=== PATIENT | male | born 1945 ===

== ENCOUNTER 2019-12-02 09:03 | Inpatient (IN) ==
[2019-12-02 11:00] LABS: Allen Test Positive; Pt O2 Delivery Device Ventilator
[2019-12-02 11:01] LABS: ABG Base Excess -4.4 MMOL/L (-2.5-2.5); ABG HCO3 20.8 MMOL/L (20-26); ABG PCO2 62.9 MM HG (35-48); ABG PH 7.218 (7.35-7.45); ABG TCO2 22.2 MMOL/L (23-27)
[2019-12-02 11:15] LABS: Basophils # 0.1 10*3/uL (0.0-0.2); Basophils % 0.5 % (0.0-0.8); Eosinophils # 0.2 10*3/uL (0.0-0.87); Hematocrit 48.7 VOL% (42.0-52.0); Hemoglobin 16.2 GM/DL (14.0-18.0); Immature Granulocytes % 4.2 %; Immature Granulocytes Absolute 0.71 #; Lymphocytes # 0.6 10*3/uL (1.4-4.0); Lymphocytes % 3.3 % (21.2-54.2); Mean Corpuscular HGB Conc 33.3 GM/DL (32-36); Mean Corpuscular Volume 92.8 FL (87-102); Platelet Count 254 T/CUMM (130-400); Red Blood Count 5.25 MC/CUMM (3.8-5.5); Red Cell Distribution Width 14.1 % (9.3-17.3)
[2019-12-02 11:44] LABS: Ferritin 782.1 ng/ml (26-388)
[2019-12-02 11:47] LABS: Lymphocytes 5 % (20-55); Microcytosis Slight; Myelocytes 2 %; Platelet Estimate Normal; Segmented Neutrophils 91 % (50-85); Total Cells Counted 100
[2019-12-02 12:30] LABS: HIV Antigen/Antibody Result Nonreactive (Nonreactive); Hepatitis B Surface Ag Quant < 0.10 Index; Hepatitis B Surface Ag Result Negative (Negative); Hepatitis C Virus Ab Result Negative (Negative)
[2019-12-02] MEDS ORDERED: SODIUM CHLORIDE 0.9% 500 ML IV ONE (13:26)
[2019-12-02] MEDS: fentaNYL INJ 1,250 MCG in SODIUM CHLORIDE 0.9% 225 ML IV PRN (14:33)
[2019-12-02] MEDS: PANTOPRAZOLE 40 MG VIAL IV SCH (14:37)
[2019-12-02] MEDS: SODIUM CHLORIDE 0.9% 1,000 ML IV SCH (15:35)
[2019-12-02] MEDS ORDERED: SODIUM CHLORIDE 0.9% 1,000 ML IV ONE ×2 (15:44→15:55)
[2019-12-02 15:48] LABS: Bilirubin,Total 0.9 MG/DL (0.2-1.0); Calcium 7.6 MG/DL (8.5-10.1); Total Protein 5.8 G/DL (6.4-8.3)
[2019-12-02] MEDS ORDERED: MIDAZOLAM 10 MG/2 ML VIAL IV ONE (15:59)
[2019-12-02] MEDS ORDERED: MIDAZOLAM 10 MG/2 ML VIAL ONE (16:06)
[2019-12-02] MEDS: MIDAZOLAM 100 MG in SODIUM CHLORIDE 0.9% 80 ML IV PRN (17:00)
[2019-12-02] MEDS: NOREPINEPHRINE 16 MG in SODIUM CHLORIDE 0.9% 234 ML IV PRN (17:32)
[2019-12-02] MEDS: ENOXAPARIN 100 MG/ML SYRINGE SUBCUT SCH (17:43)
[2019-12-02 17:57] LABS: Troponin I < 0.015 NG/ML (0.00-0.045)
[2019-12-02] MEDS ORDERED: LEVOFLOXACIN INJ 750 MG in PREMIX 1 EACH IV SCH (18:00)
[2019-12-02] MEDS: MEROPENEM 500 MG in SODIUM CHLORIDE 0.9% 100 ML IV SCH (18:08)
[2019-12-02 18:34] LABS: ABG HCO3 20.3 MMOL/L (20-26); ABG Oxygen Saturation 98.4 % (95-100); ABG PCO2 45.8 MM HG (35-48); ABG PH 7.287 (7.35-7.45); ABG TCO2 19.2 MMOL/L (23-27)
[2019-12-03] MEDS: fentaNYL INJ 1,250 MCG in SODIUM CHLORIDE 0.9% 225 ML IV PRN ×3 (00:34→20:38)
[2019-12-03] MEDS: MEROPENEM 500 MG in SODIUM CHLORIDE 0.9% 100 ML IV SCH ×4 (01:25→19:10)
[2019-12-03] MEDS: SODIUM CHLORIDE 0.9% 1,000 ML IV SCH ×4 (01:35→20:39)
[2019-12-03 04:05] LABS: ABG Base Excess -5.9 MMOL/L (-2.5-2.5); ABG Oxygen Saturation 97.8 % (95-100); ABG PH 7.307 (7.35-7.45); ABG PO2 111.4 MM HG (80-95); ABG TCO2 21.3 MMOL/L (23-27)
[2019-12-03 04:57] LABS: Basophils # 0.1 10*3/uL (0.0-0.2); Basophils % 0.5 % (0.0-0.8); Eosinophils # 0.2 10*3/uL (0.0-0.87); Eosinophils % 1.6 % (0.00-10.9); Hematocrit 39.5 VOL% (42.0-52.0); Hemoglobin 12.7 GM/DL (14.0-18.0); Immature Granulocytes % 5.4 %; Immature Granulocytes Absolute 0.72 #; Lymphocytes # 0.4 10*3/uL (1.4-4.0); Lymphocytes % 2.6 % (21.2-54.2); Mean Corpuscular HGB Conc 32.2 GM/DL (32-36); Mean Corpuscular Volume 95.4 FL (87-102); Mean Platelet Volume 9.2 FL (9.6-12.0); Monocytes % 1.3 % (1.7-12.7); Neutrophils % 88.6 % (38.7-73.9); Platelet Count 264 T/CUMM (130-400); Red Blood Count 4.14 MC/CUMM (3.8-5.5); Red Cell Distribution Width 14.3 % (9.3-17.3); White Blood Count 13.4 T/CUMM (4-12)
[2019-12-03 05:19] LABS: Calcium 6.2 MG/DL (8.5-10.1); Osmolality,Calculated 282.8 MOS/KG (273-304)
[2019-12-03 06:17] LABS: Band Neutrophils 9 % (0-10); Burr Cells 1+; Eosinophils 2 % (0-10); Lymphocytes 2 % (20-55); Platelet Estimate Normal; Segmented Neutrophils 87 % (50-85); Total Cells Counted 100
[2019-12-03 06:18] LABS: Anisocytosis 1+; Smudge Cells Few
[2019-12-03] MEDS: PANTOPRAZOLE 40 MG VIAL IV SCH (08:23)
[2019-12-03] MEDS: ENOXAPARIN 100 MG/ML SYRINGE SUBCUT SCH ×2 (08:23→20:30)
[2019-12-03] MEDS ORDERED: CALCIUM GLUCONATE 2,000 MG in SODIUM CHLORIDE 0.9% 100 ML IV ONE (09:36)
[2019-12-03] MEDS ORDERED: CALCIUM GLUCONATE 1,000 MG in SODIUM CHLORIDE 0.9% 100 ML IV ONE (10:30)
[2019-12-03] MEDS ORDERED: DEXTROSE 10% 250 ML BAG IV PRN (10:41)
[2019-12-03] MEDS ORDERED: GLUCAGON 1 MG VIAL IM PRN (10:41)
[2019-12-03] MEDS: INSULIN REGULAR 100 UNIT/ML SUBCUT SCH ×3 (11:54→23:42)
[2019-12-03] MEDS ORDERED: SODIUM CHLORIDE 0.9% 1,000 ML IV PRN (12:23)
[2019-12-03] MEDS ORDERED: AZITHROMYCIN INJ 500 MG in SODIUM CHLORIDE 0.9% 250 ML IV ONE (15:31)
[2019-12-03] MEDS: MIDAZOLAM 100 MG in SODIUM CHLORIDE 0.9% 80 ML IV PRN (18:51)
[2019-12-03] MEDS: NOREPINEPHRINE 16 MG in SODIUM CHLORIDE 0.9% 234 ML IV PRN (19:10)
[2019-12-04] MEDS: SODIUM CHLORIDE 0.9% 1,000 ML IV SCH ×2 (00:20→06:18)
[2019-12-04] MEDS: MEROPENEM 500 MG in SODIUM CHLORIDE 0.9% 100 ML IV SCH ×4 (01:39→19:00)
[2019-12-04 04:12] LABS: ABG Base Excess -4.6 MMOL/L (-2.5-2.5); ABG HCO3 21.3 MMOL/L (20-26); ABG Oxygen Saturation 96.4 % (95-100); ABG PCO2 42.3 MM HG (35-48); ABG PH 7.319 (7.35-7.45); ABG PO2 90.3 MM HG (80-95); ABG TCO2 22.6 MMOL/L (23-27)
[2019-12-04 04:16] LABS: Basophils % 0.2 % (0.0-0.8); Eosinophils # 0.1 10*3/uL (0.0-0.87); Hemoglobin 10.8 GM/DL (14.0-18.0); Immature Granulocytes % 1.8 %; Immature Granulocytes Absolute 0.17 #; Lymphocytes # 0.1 10*3/uL (1.4-4.0); Lymphocytes % 1.3 % (21.2-54.2); Mean Corpuscular HGB Conc 31.8 GM/DL (32-36); Mean Corpuscular Volume 95.5 FL (87-102); Mean Platelet Volume 8.9 FL (9.6-12.0); Monocytes % 1.4 % (1.7-12.7); Neutrophils % 94.3 % (38.7-73.9); Platelet Count 168 T/CUMM (130-400); Red Blood Count 3.56 MC/CUMM (3.8-5.5); Red Cell Distribution Width 14.6 % (9.3-17.3); White Blood Count 9.4 T/CUMM (4-12)
[2019-12-04 04:40] LABS: Hypochromasia Slight; Platelet Estimate Adequate; Segmented Neutrophils 99 % (50-85); Total Cells Counted 100
[2019-12-04 04:48] LABS: Calcium 7.5 MG/DL (8.5-10.1); Osmolality,Calculated 292.4 MOS/KG (273-304)
[2019-12-04] MEDS: fentaNYL INJ 1,250 MCG in SODIUM CHLORIDE 0.9% 225 ML IV PRN ×2 (04:48→20:57)
[2019-12-04] MEDS: INSULIN REGULAR 100 UNIT/ML SUBCUT SCH ×3 (05:26→18:12)
[2019-12-04] MEDS: PANTOPRAZOLE 40 MG VIAL IV SCH (09:01)
[2019-12-04] MEDS: AZITHROMYCIN 250 MG TABLET PO SCH (09:01)
[2019-12-04] MEDS: ENOXAPARIN 100 MG/ML SYRINGE SUBCUT SCH ×2 (09:01→20:05)
[2019-12-04] MEDS: FUROSEMIDE 40 MG/4 ML VIAL IV SCH (16:53)
[2019-12-05] MEDS: INSULIN REGULAR 100 UNIT/ML SUBCUT SCH ×4 (00:03→17:56)
[2019-12-05] MEDS: MEROPENEM 500 MG in SODIUM CHLORIDE 0.9% 100 ML IV SCH ×3 (00:32→13:35)
[2019-12-05] MEDS: NOREPINEPHRINE 16 MG in SODIUM CHLORIDE 0.9% 234 ML IV PRN (01:46)
[2019-12-05 04:22] LABS: ABG Base Excess -2.8 MMOL/L (-2.5-2.5); ABG HCO3 24.2 MMOL/L (20-26); ABG Oxygen Saturation 98.8 % (95-100); ABG PCO2 52.5 MM HG (35-48); ABG PH 7.282 (7.35-7.45); ABG PO2 183.8 MM HG (80-95); ABG TCO2 25.8 MMOL/L (23-27)
[2019-12-05 04:37] LABS: Basophils % 0.2 % (0.0-0.8); Eosinophils # 0.1 10*3/uL (0.0-0.87); Eosinophils % 1.4 % (0.00-10.9); Hematocrit 34.9 VOL% (42.0-52.0); Hemoglobin 10.7 GM/DL (14.0-18.0); Immature Granulocytes % 1.6 %; Immature Granulocytes Absolute 0.16 #; Lymphocytes # 0.2 10*3/uL (1.4-4.0); Lymphocytes % 1.6 % (21.2-54.2); Mean Corpuscular HGB Conc 30.7 GM/DL (32-36); Mean Corpuscular Volume 99.4 FL (87-102); Mean Platelet Volume 8.9 FL (9.6-12.0); Neutrophils % 93.2 % (38.7-73.9); Platelet Count 180 T/CUMM (130-400); Red Blood Count 3.51 MC/CUMM (3.8-5.5); White Blood Count 9.8 T/CUMM (4-12)
[2019-12-05 05:00] LABS: Acanthocytes Few; Band Neutrophils 2 % (0-10); Eosinophils 1 % (0-10); Hypochromasia 1+; Lymphocytes 1 % (20-55); Polychromasia Slight; Segmented Neutrophils 95 % (50-85); Total Cells Counted 100
[2019-12-05 05:01] LABS: Microcytosis Slight; Ovalocytes Slight; Platelet Estimate Adequate
[2019-12-05] MEDS: FUROSEMIDE 40 MG/4 ML VIAL IV SCH ×3 (08:08→21:25)
[2019-12-05] MEDS: PANTOPRAZOLE 40 MG VIAL IV SCH (08:09)
[2019-12-05] MEDS: ENOXAPARIN 100 MG/ML SYRINGE SUBCUT SCH ×2 (08:09→21:00)
[2019-12-05] MEDS: AZITHROMYCIN 250 MG TABLET PO SCH (08:09)
[2019-12-05] MEDS: CHOLECALCIFEROL 1,000 UNIT TABLET PER TUBE SCH (08:09)
[2019-12-05] MEDS ORDERED: DEXAMETHASONE 4 MG/1 ML VIAL IV SCH (15:30)
[2019-12-05] MEDS: DEXAMETHASONE 4 MG/1 ML VIAL IV SCH (15:41)
[2019-12-05] MEDS: cefTRIAXone 1,000 MG in SYRINGE 1 EACH IV SCH (15:41)
[2019-12-05] MEDS: fentaNYL INJ 1,250 MCG in SODIUM CHLORIDE 0.9% 225 ML IV PRN (17:03)
[2019-12-06] MEDS: INSULIN REGULAR 100 UNIT/ML SUBCUT SCH ×4 (00:36→18:01)
[2019-12-06] MEDS: fentaNYL INJ 1,250 MCG in SODIUM CHLORIDE 0.9% 225 ML IV PRN ×2 (02:45→14:46)
[2019-12-06 04:43] LABS: ABG Base Excess 0.5 MMOL/L (-2.5-2.5); ABG HCO3 27.1 MMOL/L (20-26); ABG Oxygen Saturation 98.4 % (95-100); ABG PCO2 53.1 MM HG (35-48); ABG PH 7.326 (7.35-7.45); ABG PO2 139.2 MM HG (80-95); ABG TCO2 28.7 MMOL/L (23-27)
[2019-12-06 04:53] LABS: Basophils % 0.1 % (0.0-0.8); Hematocrit 33.1 VOL% (42.0-52.0); Hemoglobin 10.3 GM/DL (14.0-18.0); Immature Granulocytes % 1.2 %; Immature Granulocytes Absolute 0.14 #; Lymphocytes # 0.2 10*3/uL (1.4-4.0); Lymphocytes % 1.3 % (21.2-54.2); Mean Corpuscular HGB Conc 31.1 GM/DL (32-36); Mean Corpuscular Volume 96.8 FL (87-102); Mean Platelet Volume 9.2 FL (9.6-12.0); Monocytes % 1.6 % (1.7-12.7); Neutrophils % 95.8 % (38.7-73.9); Platelet Count 172 T/CUMM (130-400); Red Blood Count 3.42 MC/CUMM (3.8-5.5); Red Cell Distribution Width 14.9 % (9.3-17.3); White Blood Count 11.5 T/CUMM (4-12)
[2019-12-06 05:05] LABS: Calcium 8.2 MG/DL (8.5-10.1); Osmolality,Calculated 298.1 MOS/KG (273-304)
[2019-12-06 05:44] LABS: Hypochromasia Slight; Lymphocytes 2 % (20-55); Microcytosis Slight; Platelet Estimate Adequate; Segmented Neutrophils 97 % (50-85); Total Cells Counted 100
[2019-12-06] MEDS: PANTOPRAZOLE 40 MG VIAL IV SCH (08:04)
[2019-12-06] MEDS: ENOXAPARIN 100 MG/ML SYRINGE SUBCUT SCH ×2 (08:04→21:00)
[2019-12-06] MEDS: CHOLECALCIFEROL 1,000 UNIT TABLET PER TUBE SCH (08:05)
[2019-12-06] MEDS: AZITHROMYCIN 250 MG TABLET PO SCH (08:05)
[2019-12-06] MEDS: FUROSEMIDE 40 MG/4 ML VIAL IV SCH ×2 (08:31→21:00)
[2019-12-06] MEDS: cefTRIAXone 1,000 MG in SYRINGE 1 EACH IV SCH (15:18)
[2019-12-06] MEDS: DEXAMETHASONE 4 MG/1 ML VIAL IV SCH (15:21)
[2019-12-06] MEDS: NOREPINEPHRINE 16 MG in SODIUM CHLORIDE 0.9% 234 ML IV PRN (19:45)
[2019-12-07] MEDS: fentaNYL INJ 1,250 MCG in SODIUM CHLORIDE 0.9% 225 ML IV PRN ×3 (00:28→21:05)
[2019-12-07] MEDS: INSULIN REGULAR 100 UNIT/ML SUBCUT SCH ×4 (01:45→18:38)
[2019-12-07 03:37] LABS: ABG Base Excess 2.8 MMOL/L (-2.5-2.5); ABG HCO3 28.7 MMOL/L (20-26); ABG Oxygen Saturation 97.7 % (95-100); ABG PCO2 50.8 MM HG (35-48); ABG PO2 119.1 MM HG (80-95); ABG TCO2 30.3 MMOL/L (23-27)
[2019-12-07 04:33] LABS: Basophils % 0.1 % (0.0-0.8); Hematocrit 32.6 VOL% (42.0-52.0); Hemoglobin 10.3 GM/DL (14.0-18.0); Immature Granulocytes % 1.7 %; Immature Granulocytes Absolute 0.16 #; Lymphocytes # 0.2 10*3/uL (1.4-4.0); Lymphocytes % 2.5 % (21.2-54.2); Mean Corpuscular HGB Conc 31.6 GM/DL (32-36); Mean Platelet Volume 9.8 FL (9.6-12.0); Monocytes % 3.5 % (1.7-12.7); Neutrophils % 92.2 % (38.7-73.9); Platelet Count 193 T/CUMM (130-400); Red Blood Count 3.36 MC/CUMM (3.8-5.5); Red Cell Distribution Width 14.9 % (9.3-17.3); White Blood Count 9.2 T/CUMM (4-12)
[2019-12-07 04:43] LABS: Calcium 8.3 MG/DL (8.5-10.1)
[2019-12-07 05:28] LABS: Hypochromasia Slight; Lymphocytes 3 % (20-55); Platelet Estimate Adequate; Segmented Neutrophils 96 % (50-85); Total Cells Counted 100
[2019-12-07 05:29] LABS: Microcytosis Slight
[2019-12-07] MEDS: ENOXAPARIN 100 MG/ML SYRINGE SUBCUT SCH ×2 (08:28→21:52)
[2019-12-07] MEDS: PANTOPRAZOLE 40 MG VIAL IV SCH (08:28)
[2019-12-07] MEDS: AZITHROMYCIN 250 MG TABLET PO SCH (08:29)
[2019-12-07] MEDS: CHOLECALCIFEROL 1,000 UNIT TABLET PER TUBE SCH (08:29)
[2019-12-07] MEDS: METOCLOPRAMIDE 10 MG/2 ML VIAL IV SCH ×2 (12:25→18:02)
[2019-12-07] MEDS: BISACODYL 5 MG TABLET PO SCH (12:25)
[2019-12-07] MEDS: cefTRIAXone 1,000 MG in SYRINGE 1 EACH IV SCH (15:10)
[2019-12-07] MEDS: DEXAMETHASONE 4 MG/1 ML VIAL IV SCH (16:08)
[2019-12-08] MEDS: INSULIN REGULAR 100 UNIT/ML SUBCUT SCH ×4 (00:26→18:24)
[2019-12-08] MEDS: METOCLOPRAMIDE 10 MG/2 ML VIAL IV SCH ×4 (00:27→18:05)
[2019-12-08 06:03] LABS: Basophils % 0.2 % (0.0-0.8); Hematocrit 32.4 VOL% (42.0-52.0); Immature Granulocytes % 2.1 %; Immature Granulocytes Absolute 0.17 #; Lymphocytes # 0.2 10*3/uL (1.4-4.0); Mean Corpuscular HGB Conc 30.9 GM/DL (32-36); Mean Corpuscular Volume 98.2 FL (87-102); Mean Platelet Volume 9.7 FL (9.6-12.0); Monocytes % 3.7 % (1.7-12.7); Platelet Count 148 T/CUMM (130-400); Red Cell Distribution Width 14.6 % (9.3-17.3); White Blood Count 8.1 T/CUMM (4-12)
[2019-12-08 06:08] LABS: ABG Base Excess 3.8 MMOL/L (-2.5-2.5); ABG HCO3 29.8 MMOL/L (20-26); ABG Oxygen Saturation 95.7 % (95-100); ABG PCO2 50.2 MM HG (35-48); ABG PH 7.391 (7.35-7.45); ABG PO2 83.3 MM HG (80-95); ABG TCO2 31.3 MMOL/L (23-27)
[2019-12-08 06:32] LABS: Calcium 8.3 MG/DL (8.5-10.1); Osmolality,Calculated 301.8 MOS/KG (273-304)
[2019-12-08] MEDS: fentaNYL INJ 1,250 MCG in SODIUM CHLORIDE 0.9% 225 ML IV PRN (06:33)
[2019-12-08] MEDS: BISACODYL 5 MG TABLET PO SCH (08:56)
[2019-12-08] MEDS: PANTOPRAZOLE 40 MG VIAL IV SCH (08:57)
[2019-12-08] MEDS: CHOLECALCIFEROL 1,000 UNIT TABLET PER TUBE SCH (08:57)
[2019-12-08] MEDS: ENOXAPARIN 40 MG/0.4 ML SYRINGE SUBCUT SCH ×2 (08:59→21:23)
[2019-12-08 13:05] LABS: Band Neutrophils 1 % (0-10); Lymphocytes 5 % (20-55); Metamyelocytes 1 %; Myelocytes 1 %; Nucleated Red Blood Cells 1 (0-5); Platelet Estimate Adequate; Polychromasia Slight; Segmented Neutrophils 91 % (50-85); Total Cells Counted 100
[2019-12-08] MEDS: cefTRIAXone 1,000 MG in SYRINGE 1 EACH IV SCH (18:05)
[2019-12-08] MEDS: DEXAMETHASONE 4 MG/1 ML VIAL IV SCH (18:05)
[2019-12-09] MEDS: METOCLOPRAMIDE 10 MG/2 ML VIAL IV SCH ×4 (00:40→17:40)
[2019-12-09] MEDS: INSULIN REGULAR 100 UNIT/ML SUBCUT SCH ×4 (01:08→17:24)
[2019-12-09] MEDS: fentaNYL INJ 1,250 MCG in SODIUM CHLORIDE 0.9% 225 ML IV PRN ×3 (02:54→23:40)
[2019-12-09 04:34] LABS: ABG Base Excess 6.3 MMOL/L (-2.5-2.5); ABG HCO3 30.1 MMOL/L (20-26); ABG PCO2 53.8 MM HG (35-48); ABG PH 7.395 (7.35-7.45); ABG PO2 82.4 MM HG (80-95); ABG TCO2 28.7 MMOL/L (23-27)
[2019-12-09 04:47] LABS: Basophils % 0.1 % (0.0-0.8); Hematocrit 32.7 VOL% (42.0-52.0); Hemoglobin 10.3 GM/DL (14.0-18.0); Immature Granulocytes % 1.5 %; Immature Granulocytes Absolute 0.22 #; Lymphocytes # 0.2 10*3/uL (1.4-4.0); Lymphocytes % 1.1 % (21.2-54.2); Mean Corpuscular HGB Conc 31.5 GM/DL (32-36); Mean Platelet Volume 9.8 FL (9.6-12.0); Monocytes % 2.4 % (1.7-12.7); Neutrophils % 94.9 % (38.7-73.9); Platelet Count 126 T/CUMM (130-400); Red Blood Count 3.37 MC/CUMM (3.8-5.5); Red Cell Distribution Width 14.6 % (9.3-17.3); White Blood Count 14.8 T/CUMM (4-12)
[2019-12-09 04:56] LABS: Calcium 8.2 MG/DL (8.5-10.1); Osmolality,Calculated 307.3 MOS/KG (273-304)
[2019-12-09 06:35] LABS: Anisocytosis 1+; Platelet Estimate Adequate; Segmented Neutrophils 100 % (50-85); Total Cells Counted 100
[2019-12-09] MEDS: ENOXAPARIN 40 MG/0.4 ML SYRINGE SUBCUT SCH ×2 (08:07→21:03)
[2019-12-09] MEDS: PANTOPRAZOLE 40 MG VIAL IV SCH (08:07)
[2019-12-09] MEDS: BISACODYL 5 MG TABLET PO SCH (08:08)
[2019-12-09] MEDS: CHOLECALCIFEROL 1,000 UNIT TABLET PER TUBE SCH (08:08)
[2019-12-09] MEDS: PIPERACILLIN/TAZOBACTAM 3,375 MG in SODIUM CHLORIDE 0.9% 100 ML IV SCH ×2 (10:02→17:38)
[2019-12-09 14:02] LABS: ABG Base Excess 6.2 MMOL/L (-2.5-2.5); ABG PH 7.389 (7.35-7.45); ABG PO2 68.1 MM HG (80-95); ABG TCO2 29.3 MMOL/L (23-27)
[2019-12-09] MEDS: DEXAMETHASONE 4 MG/1 ML VIAL IV SCH (15:17)
[2019-12-10] MEDS: INSULIN REGULAR 100 UNIT/ML SUBCUT SCH ×4 (00:01→18:13)
[2019-12-10] MEDS: METOCLOPRAMIDE 10 MG/2 ML VIAL IV SCH ×4 (00:01→18:13)
[2019-12-10] MEDS: PIPERACILLIN/TAZOBACTAM 3,375 MG in SODIUM CHLORIDE 0.9% 100 ML IV SCH ×3 (02:12→18:13)
[2019-12-10 05:21] LABS: ABG Base Excess 5.7 MMOL/L (-2.5-2.5); ABG HCO3 29.5 MMOL/L (20-26); ABG Oxygen Saturation 96.2 % (95-100); ABG PCO2 54.6 MM HG (35-48); ABG PH 7.384 (7.35-7.45); ABG PO2 87.8 MM HG (80-95); ABG TCO2 28.1 MMOL/L (23-27)
[2019-12-10 05:32] LABS: Basophils % 0.1 % (0.0-0.8); Hematocrit 31.1 VOL% (42.0-52.0); Hemoglobin 9.7 GM/DL (14.0-18.0); Immature Granulocytes % 2.9 %; Immature Granulocytes Absolute 0.24 #; Lymphocytes # 0.2 10*3/uL (1.4-4.0); Mean Corpuscular HGB Conc 31.2 GM/DL (32-36); Mean Corpuscular Volume 98.4 FL (87-102); Monocytes % 2.3 % (1.7-12.7); Neutrophils % 92.7 % (38.7-73.9); Platelet Count 176 T/CUMM (130-400); Red Blood Count 3.16 MC/CUMM (3.8-5.5); Red Cell Distribution Width 14.6 % (9.3-17.3); White Blood Count 8.2 T/CUMM (4-12)
[2019-12-10 05:49] LABS: Calcium 8.2 MG/DL (8.5-10.1); Osmolality,Calculated 308.6 MOS/KG (273-304)
[2019-12-10 05:52] LABS: Hypochromasia 1+; Lymphocytes 4 % (20-55); Microcytosis Slight; Nucleated Red Blood Cells 1 (0-5); Ovalocytes Slight; Platelet Estimate Adequate; Segmented Neutrophils 95 % (50-85); Total Cells Counted 100
[2019-12-10] MEDS: CHOLECALCIFEROL 1,000 UNIT TABLET PER TUBE SCH (08:30)
[2019-12-10] MEDS: ENOXAPARIN 40 MG/0.4 ML SYRINGE SUBCUT SCH ×2 (08:30→22:56)
[2019-12-10] MEDS: BISACODYL 5 MG TABLET PO SCH (08:30)
[2019-12-10] MEDS: PANTOPRAZOLE 40 MG VIAL IV SCH (09:25)
[2019-12-10] MEDS: fentaNYL INJ 1,250 MCG in SODIUM CHLORIDE 0.9% 225 ML IV PRN ×2 (10:07→19:40)
[2019-12-10] MEDS: FUROSEMIDE 40 MG/4 ML VIAL IV SCH (14:23)
[2019-12-10] MEDS: DEXAMETHASONE 4 MG/1 ML VIAL IV SCH (14:40)
[2019-12-10] MEDS: NOREPINEPHRINE 16 MG in SODIUM CHLORIDE 0.9% 234 ML IV PRN (23:14)
[2019-12-11] MEDS: METOCLOPRAMIDE 10 MG/2 ML VIAL IV SCH ×4 (01:16→17:47)
[2019-12-11] MEDS: INSULIN REGULAR 100 UNIT/ML SUBCUT SCH ×4 (01:16→17:47)
[2019-12-11] MEDS: PIPERACILLIN/TAZOBACTAM 3,375 MG in SODIUM CHLORIDE 0.9% 100 ML IV SCH ×3 (01:17→17:48)
[2019-12-11] MEDS: fentaNYL INJ 1,250 MCG in SODIUM CHLORIDE 0.9% 225 ML IV PRN ×2 (05:15→20:18)
[2019-12-11 05:44] LABS: ABG Base Excess 7.3 MMOL/L (-2.5-2.5); ABG HCO3 31.1 MMOL/L (20-26); ABG Oxygen Saturation 99.2 % (95-100); ABG PCO2 51.4 MM HG (35-48); ABG PH 7.416 (7.35-7.45); ABG TCO2 30.1 MMOL/L (23-27)
[2019-12-11 05:51] LABS: Basophils % 0.2 % (0.0-0.8); Hematocrit 30.9 VOL% (42.0-52.0); Hemoglobin 9.6 GM/DL (14.0-18.0); Immature Granulocytes % 3.3 %; Immature Granulocytes Absolute 0.22 #; Lymphocytes # 0.2 10*3/uL (1.4-4.0); Lymphocytes % 3.6 % (21.2-54.2); Mean Corpuscular HGB Conc 31.1 GM/DL (32-36); Mean Corpuscular Volume 97.8 FL (87-102); Monocytes % 4.5 % (1.7-12.7); NRBC # 0.03 10*3/uL; Neutrophils % 88.4 % (38.7-73.9); Platelet Count 200 T/CUMM (130-400); Red Blood Count 3.16 MC/CUMM (3.8-5.5); Red Cell Distribution Width 14.2 % (9.3-17.3); White Blood Count 6.6 T/CUMM (4-12)
[2019-12-11 06:05] LABS: Calcium 8.1 MG/DL (8.5-10.1); Osmolality,Calculated 299.1 MOS/KG (273-304)
[2019-12-11 06:36] LABS: Hypochromasia Slight; Lymphocytes 2 % (20-55); Metamyelocytes 1 %; Microcytosis Slight; Segmented Neutrophils 94 % (50-85); Total Cells Counted 100
[2019-12-11] MEDS: FUROSEMIDE 40 MG/4 ML VIAL IV SCH (08:45)
[2019-12-11] MEDS: CHOLECALCIFEROL 1,000 UNIT TABLET PER TUBE SCH (09:52)
[2019-12-11] MEDS: PANTOPRAZOLE 40 MG VIAL IV SCH (09:53)
[2019-12-11] MEDS: ENOXAPARIN 40 MG/0.4 ML SYRINGE SUBCUT SCH ×2 (09:53→21:36)
[2019-12-11] MEDS: BISACODYL 5 MG TABLET PO SCH (09:54)
[2019-12-11] MEDS: DEXAMETHASONE 4 MG/1 ML VIAL IV SCH (15:50)
[2019-12-11] MEDS: NOREPINEPHRINE 16 MG in SODIUM CHLORIDE 0.9% 234 ML IV PRN (20:17)
[2019-12-12] MEDS: METOCLOPRAMIDE 10 MG/2 ML VIAL IV SCH ×5 (00:17→23:57)
[2019-12-12] MEDS: INSULIN REGULAR 100 UNIT/ML SUBCUT SCH ×5 (00:17→23:57)
[2019-12-12] MEDS: PIPERACILLIN/TAZOBACTAM 3,375 MG in SODIUM CHLORIDE 0.9% 100 ML IV SCH ×3 (03:39→17:47)
[2019-12-12] MEDS: fentaNYL INJ 1,250 MCG in SODIUM CHLORIDE 0.9% 225 ML IV PRN (05:55)
[2019-12-12 06:09] LABS: ABG Base Excess 9.6 MMOL/L (-2.5-2.5); ABG HCO3 35.3 MMOL/L (20-26); ABG Oxygen Saturation 97.9 % (95-100); ABG PCO2 53.7 MM HG (35-48); ABG PH 7.436 (7.35-7.45); ABG PO2 115.4 MM HG (80-95)
[2019-12-12 06:21] LABS: Basophils # 0.1 10*3/uL (0.0-0.2); Basophils % 0.8 % (0.0-0.8); Eosinophils # 0.4 10*3/uL (0.0-0.87); Eosinophils % 6.5 % (0.00-10.9); Hematocrit 34.3 VOL% (42.0-52.0); Hemoglobin 10.8 GM/DL (14.0-18.0); Immature Granulocytes % 5.5 %; Immature Granulocytes Absolute 0.36 #; Lymphocytes # 0.3 10*3/uL (1.4-4.0); Lymphocytes % 4.5 % (21.2-54.2); Mean Corpuscular HGB Conc 31.5 GM/DL (32-36); Mean Corpuscular Volume 96.6 FL (87-102); Mean Platelet Volume 9.5 FL (9.6-12.0); Monocytes % 7.3 % (1.7-12.7); NRBC # 0.02 10*3/uL; Neutrophils % 75.4 % (38.7-73.9); Platelet Count 232 T/CUMM (130-400); Red Blood Count 3.55 MC/CUMM (3.8-5.5); White Blood Count 6.6 T/CUMM (4-12)
[2019-12-12 06:35] LABS: Calcium 8.1 MG/DL (8.5-10.1); Osmolality,Calculated 290.4 MOS/KG (273-304)
[2019-12-12 06:43] LABS: Band Neutrophils 2 % (0-10); Eosinophils 4 % (0-10); Hypochromasia 1+; Lymphocytes 4 % (20-55); Microcytosis 1+; Platelet Estimate Adequate; Segmented Neutrophils 84 % (50-85); Total Cells Counted 100
[2019-12-12] MEDS: ENOXAPARIN 40 MG/0.4 ML SYRINGE SUBCUT SCH ×2 (08:10→20:58)
[2019-12-12] MEDS: BISACODYL 5 MG TABLET PO SCH (08:10)
[2019-12-12] MEDS: CHOLECALCIFEROL 1,000 UNIT TABLET PER TUBE SCH (08:10)
[2019-12-12] MEDS: PANTOPRAZOLE 40 MG VIAL IV SCH (08:10)
[2019-12-12] MEDS: FUROSEMIDE 40 MG/4 ML VIAL IV SCH (08:10)
[2019-12-12] MEDS: DEXMEDETOMIDINE 200 MCG in SODIUM CHLORIDE 0.9% 48 ML IV PRN ×2 (11:20→15:15)
[2019-12-12] MEDS: DEXAMETHASONE 4 MG/1 ML VIAL IV SCH (16:35)
[2019-12-12 16:52] LABS: ABG Base Excess 10.3 MMOL/L (-2.5-2.5); ABG HCO3 33.9 MMOL/L (20-26); ABG Oxygen Saturation 93.9 % (95-100); ABG PCO2 58.9 MM HG (35-48); ABG PH 7.413 (7.35-7.45); ABG PO2 72.2 MM HG (80-95); ABG TCO2 32.4 MMOL/L (23-27)
[2019-12-12] MEDS: DEXMEDETOMIDINE 400 MCG in SODIUM CHLORIDE 0.9% 96 ML IV PRN (19:35)
[2019-12-13] MEDS: PIPERACILLIN/TAZOBACTAM 3,375 MG in SODIUM CHLORIDE 0.9% 100 ML IV SCH ×3 (02:52→23:35)
[2019-12-13] MEDS: DEXMEDETOMIDINE 400 MCG in SODIUM CHLORIDE 0.9% 96 ML IV PRN ×3 (02:53→18:44)
[2019-12-13 05:12] LABS: ABG Base Excess 11.1 MMOL/L (-2.5-2.5); ABG Oxygen Saturation 97.5 % (95-100); ABG PCO2 55.4 MM HG (35-48); ABG PH 7.442 (7.35-7.45); ABG PO2 103.3 MM HG (80-95); ABG TCO2 38.7 MMOL/L (23-27)
[2019-12-13 05:22] LABS: Basophils % 0.3 % (0.0-0.8); Eosinophils # 0.1 10*3/uL (0.0-0.87); Eosinophils % 1.5 % (0.00-10.9); Hematocrit 36.4 VOL% (42.0-52.0); Hemoglobin 11.1 GM/DL (14.0-18.0); Immature Granulocytes % 3.5 %; Immature Granulocytes Absolute 0.28 #; Lymphocytes # 0.3 10*3/uL (1.4-4.0); Lymphocytes % 3.5 % (21.2-54.2); Mean Corpuscular HGB Conc 30.5 GM/DL (32-36); Mean Corpuscular Volume 98.4 FL (87-102); Mean Platelet Volume 9.6 FL (9.6-12.0); Neutrophils % 88.2 % (38.7-73.9); Platelet Count 230 T/CUMM (130-400); Red Cell Distribution Width 13.9 % (9.3-17.3); White Blood Count 7.9 T/CUMM (4-12)
[2019-12-13 05:46] LABS: Eosinophils 1 % (0-10); Hypochromasia 1+; Lymphocytes 6 % (20-55); Platelet Estimate Adequate; Segmented Neutrophils 89 % (50-85); Total Cells Counted 100
[2019-12-13 05:47] LABS: Microcytosis 1+; Ovalocytes Slight
[2019-12-13 05:53] LABS: Calcium 8.3 MG/DL (8.5-10.1); Osmolality,Calculated 284.7 MOS/KG (273-304)
[2019-12-13] MEDS: INSULIN REGULAR 100 UNIT/ML SUBCUT SCH ×3 (05:57→17:25)
[2019-12-13] MEDS: METOCLOPRAMIDE 10 MG/2 ML VIAL IV SCH ×4 (06:12→23:50)
[2019-12-13] MEDS: NOREPINEPHRINE 16 MG in SODIUM CHLORIDE 0.9% 234 ML IV PRN (07:17)
[2019-12-13] MEDS: CHOLECALCIFEROL 1,000 UNIT TABLET PER TUBE SCH (08:52)
[2019-12-13] MEDS: POLYETHYLENE GLYCOL POWDER 17 GM PACK PO PRN (08:52)
[2019-12-13] MEDS: PANTOPRAZOLE 40 MG VIAL IV SCH (08:53)
[2019-12-13] MEDS: BISACODYL 5 MG TABLET PO SCH (08:53)
[2019-12-13] MEDS: FUROSEMIDE 40 MG/4 ML VIAL IV SCH (08:53)
[2019-12-13] MEDS: ENOXAPARIN 40 MG/0.4 ML SYRINGE SUBCUT SCH (08:53)
[2019-12-13] MEDS: FLUCONAZOLE INJ 200 MG in PREMIX 1 EACH IV SCH (12:26)
[2019-12-13] MEDS: DEXAMETHASONE 4 MG/1 ML VIAL IV SCH (16:37)
[2019-12-13] MEDS ORDERED: PHENYLEPHRINE DRIP 40 MG/250 ML PREMIX IV ONE (16:53)
[2019-12-13] MEDS ORDERED: SODIUM CHLORIDE 0.9% 1,000 ML IV ONE ×2 (17:20→19:46)
[2019-12-13] MEDS ORDERED: PHENYLEPHRINE DRIP 40 MG/250 ML PREMIX IV PRN (17:22)
[2019-12-14] MEDS: INSULIN REGULAR 100 UNIT/ML SUBCUT SCH ×4 (00:25→17:28)
[2019-12-14] MEDS: DEXMEDETOMIDINE 400 MCG in SODIUM CHLORIDE 0.9% 96 ML IV PRN ×3 (03:33→14:55)
[2019-12-14] MEDS: NOREPINEPHRINE 16 MG in SODIUM CHLORIDE 0.9% 234 ML IV PRN ×3 (04:18→23:00)
[2019-12-14 04:58] LABS: ABG Base Excess 5.8 MMOL/L (-2.5-2.5); ABG PH 7.301 (7.35-7.45); ABG PO2 232.5 MM HG (80-95); ABG TCO2 37.2 MMOL/L (23-27)
[2019-12-14 04:59] LABS: ABG Oxygen Saturation 99.4 % (95-100)
[2019-12-14 05:00] LABS: ABG PCO2 72.6 MM HG (35-48)
[2019-12-14 05:09] LABS: Basophils # 0.1 10*3/uL (0.0-0.2); Basophils % 0.6 % (0.0-0.8); Eosinophils % 0.1 % (0.00-10.9); Hemoglobin 11.8 GM/DL (14.0-18.0); Immature Granulocytes % 4.2 %; Immature Granulocytes Absolute 0.63 #; Lymphocytes # 0.3 10*3/uL (1.4-4.0); Lymphocytes % 1.9 % (21.2-54.2); Mean Corpuscular HGB Conc 30.3 GM/DL (32-36); Mean Corpuscular Volume 98.7 FL (87-102); Mean Platelet Volume 9.4 FL (9.6-12.0); Monocytes % 3.2 % (1.7-12.7); Platelet Count 321 T/CUMM (130-400); Red Blood Count 3.95 MC/CUMM (3.8-5.5); Red Cell Distribution Width 13.9 % (9.3-17.3)
[2019-12-14 05:32] LABS: Calcium 8.1 MG/DL (8.5-10.1); Osmolality,Calculated 288.5 MOS/KG (273-304)
[2019-12-14 05:42] LABS: Band Neutrophils 1 % (0-10); Hypochromasia 1+; Lymphocytes 5 % (20-55); Platelet Estimate Adequate; Segmented Neutrophils 92 % (50-85); Total Cells Counted 100
[2019-12-14 05:43] LABS: Microcytosis Slight
[2019-12-14] MEDS: METOCLOPRAMIDE 10 MG/2 ML VIAL IV SCH ×3 (05:51→17:47)
[2019-12-14] MEDS: BISACODYL 5 MG TABLET PO SCH (08:50)
[2019-12-14] MEDS: PANTOPRAZOLE 40 MG VIAL IV SCH (08:50)
[2019-12-14] MEDS: CHOLECALCIFEROL 1,000 UNIT TABLET PER TUBE SCH (08:50)
[2019-12-14] MEDS: PIPERACILLIN/TAZOBACTAM 3,375 MG in SODIUM CHLORIDE 0.9% 100 ML IV SCH ×2 (09:01→16:49)
[2019-12-14] MEDS: ENOXAPARIN 100 MG/ML SYRINGE SUBCUT SCH ×2 (12:20→23:24)
[2019-12-14] MEDS: FLUCONAZOLE INJ 200 MG in PREMIX 1 EACH IV SCH (12:22)
[2019-12-14] MEDS: AZITHROMYCIN INJ 500 MG in SODIUM CHLORIDE 0.9% 250 ML IV SCH (14:00)
[2019-12-14] MEDS: DEXAMETHASONE 4 MG/1 ML VIAL IV SCH (16:45)
[2019-12-14] MEDS: ACETAMINOPHEN 325 MG/10.15 ML UDCUP PO PRN (21:02)
[2019-12-15] MEDS: PIPERACILLIN/TAZOBACTAM 3,375 MG in SODIUM CHLORIDE 0.9% 100 ML IV SCH ×2 (00:39→07:01)
[2019-12-15] MEDS: INSULIN REGULAR 100 UNIT/ML SUBCUT SCH ×4 (00:44→18:23)
[2019-12-15] MEDS: METOCLOPRAMIDE 10 MG/2 ML VIAL IV SCH ×3 (00:45→12:41)
[2019-12-15] MEDS: ACETAMINOPHEN 325 MG/10.15 ML UDCUP PO PRN (01:22)
[2019-12-15 05:16] LABS: ABG Base Excess 2.7 MMOL/L (-2.5-2.5); ABG HCO3 26.8 MMOL/L (20-26); ABG Oxygen Saturation 99.5 % (95-100); ABG TCO2 32.7 MMOL/L (23-27)
[2019-12-15 05:19] LABS: ABG PCO2 98.7 MM HG (35-48); ABG PH 7.166 (7.35-7.45)
[2019-12-15 05:39] LABS: Calcium 8.6 MG/DL (8.5-10.1)
[2019-12-15 06:33] LABS: Basophils # 0.1 10*3/uL (0.0-0.2); Basophils % 0.3 % (0.0-0.8); Hematocrit 43.9 VOL% (42.0-52.0); Immature Granulocytes % 2.9 %; Immature Granulocytes Absolute 0.53 #; Lymphocytes # 0.3 10*3/uL (1.4-4.0); Lymphocytes % 1.7 % (21.2-54.2); Mean Corpuscular HGB Conc 28.5 GM/DL (32-36); Mean Corpuscular Volume 105.5 FL (87-102); Mean Platelet Volume 9.3 FL (9.6-12.0); Monocytes % 4.4 % (1.7-12.7); Neutrophils % 90.7 % (38.7-73.9); Platelet Count 332 T/CUMM (130-400); Red Blood Count 4.16 MC/CUMM (3.8-5.5); Red Cell Distribution Width 14.5 % (9.3-17.3); White Blood Count 18.2 T/CUMM (4-12)
[2019-12-15 06:39] LABS: Hemoglobin 12.5 GM/DL (14.0-18.0)
[2019-12-15 07:40] LABS: Lymphocytes 2 % (20-55); Platelet Estimate Normal; Segmented Neutrophils 96 % (50-85); Total Cells Counted 100
[2019-12-15] MEDS: NOREPINEPHRINE 16 MG in SODIUM CHLORIDE 0.9% 234 ML IV PRN ×2 (08:15→19:50)
[2019-12-15 08:26] LABS: ABG Base Excess 4.9 MMOL/L (-2.5-2.5); ABG HCO3 34.8 MMOL/L (20-26); ABG Oxygen Saturation 99.5 % (95-100); ABG PH 7.237 (7.35-7.45); ABG PO2 336.5 MM HG (80-95); ABG TCO2 37.3 MMOL/L (23-27)
[2019-12-15 08:33] LABS: ABG PCO2 83.6 MM HG (35-48)
[2019-12-15] MEDS: POLYETHYLENE GLYCOL POWDER 17 GM PACK PO PRN (08:39)
[2019-12-15] MEDS: PANTOPRAZOLE 40 MG VIAL IV SCH (08:41)
[2019-12-15] MEDS: BISACODYL 5 MG TABLET PO SCH (08:41)
[2019-12-15] MEDS: CHOLECALCIFEROL 1,000 UNIT TABLET PER TUBE SCH (08:41)
[2019-12-15] MEDS: ENOXAPARIN 100 MG/ML SYRINGE SUBCUT SCH (12:34)
[2019-12-15] MEDS: AZITHROMYCIN INJ 500 MG in SODIUM CHLORIDE 0.9% 250 ML IV SCH (12:35)
[2019-12-15 13:08] LABS: Amorphous Crystals,Urine Occasional /HPF (Few); Apearance,Urine CLOUDY (Clear); Bilirubin,Urine Negative (Negative); Blood, Urine Small mg/dL (Negative); Glucose,Urine (UA) Negative (Negative); Ketones,Urine Negative (Negative); Mucus,Urine Occasional /LPF (Occasional); Nitrite,Urine Negative (Negative); Protein,Urine 30 MG/DL; RBC,Urine 7 /HPF (0-4); Squamous Epithelial Cell,Urine Occasional /HPF (0-10); Urine Color Yellow (Yellow); Urine Specific Gravity 1.024 (1.001-1.035)
[2019-12-15] MEDS ORDERED: DIGOXIN 0.5 MG/2 ML AMP IV ONE ×2 (13:48→15:00)
[2019-12-15] MEDS: FLUCONAZOLE INJ 200 MG in PREMIX 1 EACH IV SCH (13:59)
[2019-12-15] MEDS: VANCOMYCIN INJ 1,500 MG in SODIUM CHLORIDE 0.9% 500 ML IV SCH (14:19)
[2019-12-16] MEDS: ENOXAPARIN 100 MG/ML SYRINGE SUBCUT SCH ×2 (00:36→10:53)
[2019-12-16] MEDS: INSULIN REGULAR 100 UNIT/ML SUBCUT SCH ×4 (00:36→18:24)
[2019-12-16] MEDS: VANCOMYCIN INJ 1,500 MG in SODIUM CHLORIDE 0.9% 500 ML IV SCH ×2 (02:10→14:13)
[2019-12-16] MEDS: NOREPINEPHRINE 16 MG in SODIUM CHLORIDE 0.9% 234 ML IV PRN ×2 (02:39→15:59)
[2019-12-16 03:54] LABS: ABG Base Excess 8.4 MMOL/L (-2.5-2.5); ABG HCO3 32.2 MMOL/L (20-26); ABG Oxygen Saturation 99.3 % (95-100); ABG PCO2 64.1 MM HG (35-48); ABG TCO2 32.6 MMOL/L (23-27)
[2019-12-16 04:38] LABS: Basophils % 0.2 % (0.0-0.8); Eosinophils # 0.1 10*3/uL (0.0-0.87); Eosinophils % 0.5 % (0.00-10.9); Hemoglobin 11.2 GM/DL (14.0-18.0); Immature Granulocytes % 1.3 %; Immature Granulocytes Absolute 0.22 #; Lymphocytes # 0.3 10*3/uL (1.4-4.0); Lymphocytes % 1.7 % (21.2-54.2); Mean Corpuscular HGB Conc 30.3 GM/DL (32-36); Mean Corpuscular Volume 99.5 FL (87-102); Mean Platelet Volume 9.7 FL (9.6-12.0); Neutrophils % 92.3 % (38.7-73.9); Platelet Count 243 T/CUMM (130-400); Red Blood Count 3.72 MC/CUMM (3.8-5.5); Red Cell Distribution Width 14.2 % (9.3-17.3); White Blood Count 17.3 T/CUMM (4-12)
[2019-12-16 04:50] LABS: Calcium 8.1 MG/DL (8.5-10.1)
[2019-12-16 05:02] LABS: Eosinophils 1 % (0-10); Hypochromasia Slight; Lymphocytes 1 % (20-55); Ovalocytes Slight; Platelet Estimate Adequate; Segmented Neutrophils 94 % (50-85); Total Cells Counted 100
[2019-12-16] MEDS: PANTOPRAZOLE 40 MG VIAL IV SCH (08:28)
[2019-12-16] MEDS: BISACODYL 5 MG TABLET PO SCH (08:28)
[2019-12-16] MEDS: CHOLECALCIFEROL 1,000 UNIT TABLET PER TUBE SCH (08:28)
[2019-12-16] MEDS: DIGOXIN 0.5 MG/2 ML AMP IV SCH (08:43)
[2019-12-16] MEDS: AZITHROMYCIN INJ 500 MG in SODIUM CHLORIDE 0.9% 250 ML IV SCH (10:56)
[2019-12-16] MEDS: FLUCONAZOLE INJ 200 MG in PREMIX 1 EACH IV SCH (12:01)
[2019-12-16] MEDS ORDERED: AMIODARONE INJ 150 MG in DEXTROSE 5% 100 ML IV ONE (12:01)
[2019-12-16] MEDS ORDERED: AMIODARONE INJ 450 MG in DEXTROSE 5% 241 ML IV SCH (12:30)
[2019-12-16] MEDS: AMIODARONE INJ 450 MG in DEXTROSE 5% 241 ML IV SCH (23:19)
[2019-12-17] MEDS: INSULIN REGULAR 100 UNIT/ML SUBCUT SCH ×5 (00:06→23:46)
[2019-12-17] MEDS: ENOXAPARIN 100 MG/ML SYRINGE SUBCUT SCH ×2 (00:27→12:48)
[2019-12-17] MEDS: VANCOMYCIN INJ 1,500 MG in SODIUM CHLORIDE 0.9% 500 ML IV SCH ×2 (02:13→16:56)
[2019-12-17 04:05] LABS: ABG Base Excess 9.1 MMOL/L (-2.5-2.5); ABG HCO3 32.9 MMOL/L (20-26); ABG Oxygen Saturation 99.1 % (95-100); ABG PCO2 65.6 MM HG (35-48); ABG PH 7.358 (7.35-7.45); ABG TCO2 33.7 MMOL/L (23-27)
[2019-12-17 04:43] LABS: Calcium 8.1 MG/DL (8.5-10.1); Osmolality,Calculated 293.8 MOS/KG (273-304)
[2019-12-17 05:04] LABS: Calcium 7.7 MG/DL (8.5-10.1); Prealbumin 7.9 MG/DL (20-40)
[2019-12-17 05:14] LABS: Osmolality,Calculated 293.8 MOS/KG (273-304)
[2019-12-17] MEDS: CHOLECALCIFEROL 1,000 UNIT TABLET PER TUBE SCH (08:35)
[2019-12-17] MEDS: BISACODYL 5 MG TABLET PO SCH (08:35)
[2019-12-17] MEDS: DIGOXIN 0.5 MG/2 ML AMP IV SCH (08:35)
[2019-12-17] MEDS: PANTOPRAZOLE 40 MG VIAL IV SCH (08:36)
[2019-12-17 10:33] LABS: Basophils % 0.2 % (0.0-0.8); Eosinophils # 0.3 10*3/uL (0.0-0.87); Eosinophils % 3.4 % (0.00-10.9); Hematocrit 32.8 VOL% (42.0-52.0); Immature Granulocytes % 1.3 %; Immature Granulocytes Absolute 0.13 #; Lymphocytes # 0.2 10*3/uL (1.4-4.0); Lymphocytes % 2.3 % (21.2-54.2); Mean Corpuscular HGB Conc 29.9 GM/DL (32-36); Mean Corpuscular Volume 100.9 FL (87-102); Mean Platelet Volume 10.2 FL (9.6-12.0); Monocytes % 3.5 % (1.7-12.7); Neutrophils % 89.3 % (38.7-73.9); Red Blood Count 3.25 MC/CUMM (3.8-5.5); Red Cell Distribution Width 14.3 % (9.3-17.3)
[2019-12-17 10:34] LABS: White Blood Count 9.8 T/CUMM (4-12)
[2019-12-17 10:35] LABS: Hemoglobin 9.8 GM/DL (14.0-18.0); Platelet Count 174 T/CUMM (130-400)
[2019-12-17] MEDS: FUROSEMIDE 40 MG/4 ML VIAL IV SCH ×2 (11:36→20:40)
[2019-12-17 12:05] LABS: Band Neutrophils 2 % (0-10); Eosinophils 1 % (0-10); Lymphocytes 3 % (20-55); Segmented Neutrophils 92 % (50-85); Total Cells Counted 100
[2019-12-17 12:06] LABS: Microcytosis Slight
[2019-12-17 12:07] LABS: Hypochromasia 1+
[2019-12-17] MEDS: AMIODARONE INJ 450 MG in DEXTROSE 5% 241 ML IV SCH ×2 (12:07→19:01)
[2019-12-17] MEDS: FLUCONAZOLE INJ 400 MG in PREMIX 1 EACH IV SCH (12:28)
[2019-12-18] MEDS: ENOXAPARIN 100 MG/ML SYRINGE SUBCUT SCH ×3 (00:15→23:38)
[2019-12-18] MEDS: NOREPINEPHRINE 16 MG in SODIUM CHLORIDE 0.9% 234 ML IV PRN (00:49)
[2019-12-18] MEDS: AMIODARONE INJ 450 MG in DEXTROSE 5% 241 ML IV SCH (01:27)
[2019-12-18 04:33] LABS: ABG Base Excess 10.9 MMOL/L (-2.5-2.5); ABG HCO3 36.9 MMOL/L (20-26); ABG Oxygen Saturation 92.6 % (95-100); ABG PCO2 56.2 MM HG (35-48); ABG PH 7.435 (7.35-7.45); ABG PO2 62.5 MM HG (80-95); ABG TCO2 38.6 MMOL/L (23-27)
[2019-12-18 05:01] LABS: Basophils # 0.1 10*3/uL (0.0-0.2); Basophils % 0.4 % (0.0-0.8); Eosinophils # 0.4 10*3/uL (0.0-0.87); Eosinophils % 3.2 % (0.00-10.9); Hematocrit 35.4 VOL% (42.0-52.0); Hemoglobin 10.6 GM/DL (14.0-18.0); Immature Granulocytes % 1.7 %; Immature Granulocytes Absolute 0.23 #; Lymphocytes # 0.4 10*3/uL (1.4-4.0); Lymphocytes % 2.7 % (21.2-54.2); Mean Corpuscular HGB Conc 29.9 GM/DL (32-36); Mean Corpuscular Volume 100.9 FL (87-102); Mean Platelet Volume 9.9 FL (9.6-12.0); NRBC # 0.02 10*3/uL; Platelet Count 268 T/CUMM (130-400); Red Blood Count 3.51 MC/CUMM (3.8-5.5); Red Cell Distribution Width 14.5 % (9.3-17.3); White Blood Count 13.2 T/CUMM (4-12)
[2019-12-18] MEDS: VANCOMYCIN INJ 1,500 MG in SODIUM CHLORIDE 0.9% 500 ML IV SCH ×2 (05:35→17:25)
[2019-12-18 05:38] LABS: Band Neutrophils 1 % (0-10); Eosinophils 1 % (0-10); Hypochromasia 1+; Lymphocytes 1 % (20-55); Microcytosis Slight; Platelet Estimate Normal; Segmented Neutrophils 96 % (50-85); Total Cells Counted 100
[2019-12-18] MEDS: INSULIN REGULAR 100 UNIT/ML SUBCUT SCH ×4 (06:16→23:40)
[2019-12-18 06:34] LABS: Calcium 8.3 MG/DL (8.5-10.1)
[2019-12-18] MEDS: FUROSEMIDE 40 MG/4 ML VIAL IV SCH ×2 (08:42→20:31)
[2019-12-18] MEDS: DIGOXIN 0.5 MG/2 ML AMP IV SCH (08:42)
[2019-12-18] MEDS: CHOLECALCIFEROL 1,000 UNIT TABLET PER TUBE SCH (08:43)
[2019-12-18] MEDS: BISACODYL 5 MG TABLET PO SCH (08:43)
[2019-12-18] MEDS: PANTOPRAZOLE 40 MG VIAL IV SCH (08:44)
[2019-12-18] MEDS ORDERED: AMIODARONE 450 MG/9 ML VIAL IV ONE (11:30)
[2019-12-18] MEDS: AMIODARONE 200 MG TABLET PER TUBE SCH ×2 (12:25→20:29)
[2019-12-18] MEDS: FLUCONAZOLE INJ 400 MG in PREMIX 1 EACH IV SCH (13:45)
[2019-12-19] MEDS: NOREPINEPHRINE 16 MG in SODIUM CHLORIDE 0.9% 234 ML IV PRN ×2 (04:30→17:00)
[2019-12-19] MEDS: VANCOMYCIN INJ 1,500 MG in SODIUM CHLORIDE 0.9% 500 ML IV SCH ×2 (04:49→19:54)
[2019-12-19 05:30] LABS: Basophils # 0.1 10*3/uL (0.0-0.2); Basophils % 0.6 % (0.0-0.8); Eosinophils # 0.5 10*3/uL (0.0-0.87); Eosinophils % 4.2 % (0.00-10.9); Hematocrit 34.7 VOL% (42.0-52.0); Hemoglobin 10.4 GM/DL (14.0-18.0); Immature Granulocytes % 1.9 %; Immature Granulocytes Absolute 0.24 #; Lymphocytes # 0.4 10*3/uL (1.4-4.0); Lymphocytes % 3.2 % (21.2-54.2); Mean Corpuscular Volume 101.2 FL (87-102); Mean Platelet Volume 9.7 FL (9.6-12.0); Monocytes % 3.2 % (1.7-12.7); Neutrophils % 86.9 % (38.7-73.9); Platelet Count 269 T/CUMM (130-400); Red Blood Count 3.43 MC/CUMM (3.8-5.5); Red Cell Distribution Width 14.7 % (9.3-17.3); White Blood Count 12.5 T/CUMM (4-12)
[2019-12-19] MEDS: INSULIN REGULAR 100 UNIT/ML SUBCUT SCH ×3 (05:30→18:25)
[2019-12-19 05:47] LABS: Osmolality,Calculated 295.7 MOS/KG (273-304)
[2019-12-19 06:24] LABS: Band Neutrophils 1 % (0-10); Eosinophils 6 % (0-10); Hypochromasia 1+; Lymphocytes 1 % (20-55); Myelocytes 1 %; Segmented Neutrophils 89 % (50-85); Total Cells Counted 100
[2019-12-19 06:25] LABS: Microcytosis Slight; Polychromasia Slight
[2019-12-19 06:26] LABS: Platelet Estimate Normal
[2019-12-19 07:10] LABS: ABG Base Excess 9.5 MMOL/L (-2.5-2.5); ABG HCO3 33.2 MMOL/L (20-26); ABG Oxygen Saturation 98.5 % (95-100); ABG PCO2 57.1 MM HG (35-48); ABG PH 7.408 (7.35-7.45); ABG TCO2 32.6 MMOL/L (23-27)
[2019-12-19] MEDS: BISACODYL 5 MG TABLET PO SCH (08:45)
[2019-12-19] MEDS: PANTOPRAZOLE 40 MG VIAL IV SCH (08:46)
[2019-12-19] MEDS: CHOLECALCIFEROL 1,000 UNIT TABLET PER TUBE SCH (08:46)
[2019-12-19] MEDS: AMIODARONE 200 MG TABLET PER TUBE SCH ×2 (08:46→20:32)
[2019-12-19] MEDS: FUROSEMIDE 40 MG/4 ML VIAL IV SCH ×2 (08:48→20:32)
[2019-12-19] MEDS: DIGOXIN 0.5 MG/2 ML AMP IV SCH (08:51)
[2019-12-19] MEDS ORDERED: dilTIAZem Drip 125 MG/125 ML PREMIX IV SCH (10:00)
[2019-12-19] MEDS ORDERED: DILTIAZEM 50 MG/10 ML VIAL IV ONE (10:00)
[2019-12-19] MEDS ORDERED: POTASSIUM CHLORIDE 20 MEQ/15 ML UDCUP PO ONE (10:09)
[2019-12-19] MEDS ORDERED: AMIODARONE 450 MG/9 ML VIAL IV ONE ×2 (11:37→19:14)
[2019-12-19] MEDS ORDERED: AMIODARONE INJ 450 MG in DEXTROSE 5% 241 ML IV SCH (12:00)
[2019-12-19] MEDS: ENOXAPARIN 100 MG/ML SYRINGE SUBCUT SCH (12:07)
[2019-12-19] MEDS: FLUCONAZOLE INJ 400 MG in PREMIX 1 EACH IV SCH (12:31)
[2019-12-19] MEDS: AMIODARONE INJ 450 MG in DEXTROSE 5% 241 ML IV SCH (19:10)
[2019-12-20] MEDS: ENOXAPARIN 100 MG/ML SYRINGE SUBCUT SCH ×2 (00:29→12:05)
[2019-12-20] MEDS: INSULIN REGULAR 100 UNIT/ML SUBCUT SCH ×4 (00:29→18:00)
[2019-12-20] MEDS: NOREPINEPHRINE 16 MG in SODIUM CHLORIDE 0.9% 234 ML IV PRN ×2 (03:23→18:58)
[2019-12-20 04:56] LABS: ABG Base Excess 10.5 MMOL/L (-2.5-2.5); ABG HCO3 34.3 MMOL/L (20-26); ABG Oxygen Saturation 99.2 % (95-100); ABG PCO2 62.4 MM HG (35-48); ABG PH 7.391 (7.35-7.45); ABG TCO2 34.1 MMOL/L (23-27)
[2019-12-20 04:59] LABS: Basophils # 0.1 10*3/uL (0.0-0.2); Basophils % 0.6 % (0.0-0.8); Eosinophils # 0.4 10*3/uL (0.0-0.87); Eosinophils % 3.6 % (0.00-10.9); Hematocrit 33.9 VOL% (42.0-52.0); Hemoglobin 10.2 GM/DL (14.0-18.0); Immature Granulocytes % 1.9 %; Immature Granulocytes Absolute 0.22 #; Lymphocytes # 0.4 10*3/uL (1.4-4.0); Lymphocytes % 3.6 % (21.2-54.2); Mean Corpuscular HGB Conc 30.1 GM/DL (32-36); Mean Corpuscular Volume 100.6 FL (87-102); Mean Platelet Volume 9.6 FL (9.6-12.0); Monocytes % 4.1 % (1.7-12.7); NRBC # 0.02 10*3/uL; Neutrophils % 86.2 % (38.7-73.9); Platelet Count 239 T/CUMM (130-400); Red Blood Count 3.37 MC/CUMM (3.8-5.5); Red Cell Distribution Width 14.8 % (9.3-17.3); White Blood Count 11.8 T/CUMM (4-12)
[2019-12-20 05:18] LABS: Calcium 7.9 MG/DL (8.5-10.1); Osmolality,Calculated 295.8 MOS/KG (273-304)
[2019-12-20] MEDS ORDERED: VANCOMYCIN INJ 1,500 MG in SODIUM CHLORIDE 0.9% 500 ML IV SCH (06:00)
[2019-12-20 06:23] LABS: Band Neutrophils 1 % (0-10); Eosinophils 4 % (0-10); Hypochromasia 1+; Lymphocytes 2 % (20-55); Myelocytes 2 %; Segmented Neutrophils 89 % (50-85); Total Cells Counted 100
[2019-12-20 06:24] LABS: Microcytosis Slight; Platelet Estimate Normal
[2019-12-20] MEDS ORDERED: POTASSIUM CHLORIDE 20 MEQ TABLET PO ONE (08:20)
[2019-12-20] MEDS: AMIODARONE 200 MG TABLET PER TUBE SCH ×2 (08:51→20:42)
[2019-12-20] MEDS: BISACODYL 5 MG TABLET PO SCH (08:51)
[2019-12-20] MEDS: CHOLECALCIFEROL 1,000 UNIT TABLET PER TUBE SCH (08:51)
[2019-12-20] MEDS: FUROSEMIDE 40 MG/4 ML VIAL IV SCH (08:52)
[2019-12-20] MEDS: PANTOPRAZOLE 40 MG VIAL IV SCH (08:52)
[2019-12-20] MEDS: AMIODARONE INJ 450 MG in DEXTROSE 5% 241 ML IV SCH (12:44)
[2019-12-20] MEDS: FLUCONAZOLE INJ 400 MG in PREMIX 1 EACH IV SCH (12:54)
[2019-12-21] MEDS: ENOXAPARIN 100 MG/ML SYRINGE SUBCUT SCH ×3 (00:30→23:06)
[2019-12-21] MEDS: INSULIN REGULAR 100 UNIT/ML SUBCUT SCH ×4 (00:41→18:04)
[2019-12-21 05:06] LABS: ABG Base Excess 9.1 MMOL/L (-2.5-2.5); ABG HCO3 38.6 MMOL/L (20-26); ABG Oxygen Saturation 97.1 % (95-100); ABG PH 7.294 (7.35-7.45); ABG PO2 99.3 MM HG (80-95); ABG TCO2 41.1 MMOL/L (23-27)
[2019-12-21 05:08] LABS: ABG PCO2 81.4 MM HG (35-48)
[2019-12-21 05:14] LABS: Basophils # 0.1 10*3/uL (0.0-0.2); Basophils % 0.8 % (0.0-0.8); Eosinophils # 0.2 10*3/uL (0.0-0.87); Eosinophils % 1.9 % (0.00-10.9); Hematocrit 34.1 VOL% (42.0-52.0); Hemoglobin 10.3 GM/DL (14.0-18.0); Immature Granulocytes % 1.8 %; Immature Granulocytes Absolute 0.23 #; Lymphocytes # 0.5 10*3/uL (1.4-4.0); Lymphocytes % 3.5 % (21.2-54.2); Mean Corpuscular HGB Conc 30.2 GM/DL (32-36); Mean Corpuscular Volume 101.8 FL (87-102); Mean Platelet Volume 9.8 FL (9.6-12.0); Monocytes % 4.3 % (1.7-12.7); Neutrophils % 87.7 % (38.7-73.9); Platelet Count 246 T/CUMM (130-400); Red Blood Count 3.35 MC/CUMM (3.8-5.5); Red Cell Distribution Width 15.6 % (9.3-17.3); White Blood Count 12.7 T/CUMM (4-12)
[2019-12-21 05:40] LABS: Albumin 1.9 G/DL (3.4-5.0); Bilirubin,Total 0.6 MG/DL (0.2-1.0); Calcium 8.2 MG/DL (8.5-10.1); Osmolality,Calculated 300.6 MOS/KG (273-304); Total Protein 5.9 G/DL (6.4-8.3)
[2019-12-21 05:57] LABS: Ferritin 1182.7 ng/ml (26-388)
[2019-12-21 08:15] LABS: Anisocytosis 3+; Eosinophils 1 % (0-10); Hypochromasia 1+; Lymphocytes 3 % (20-55); Metamyelocytes 1 %; Platelet Estimate Normal; Segmented Neutrophils 87 % (50-85); Total Cells Counted 100
[2019-12-21 08:16] LABS: Macrocytosis 2+; Microcytosis 1+
[2019-12-21] MEDS ORDERED: FUROSEMIDE 40 MG/4 ML VIAL IV SCH (09:00)
[2019-12-21] MEDS: PANTOPRAZOLE 40 MG VIAL IV SCH (09:06)
[2019-12-21] MEDS: AMIODARONE 200 MG TABLET PER TUBE SCH ×2 (09:06→20:38)
[2019-12-21] MEDS: BISACODYL 5 MG TABLET PO SCH (09:06)
[2019-12-21] MEDS: CHOLECALCIFEROL 1,000 UNIT TABLET PER TUBE SCH (09:07)
[2019-12-21 09:26] LABS: ABG Base Excess 10.2 MMOL/L (-2.5-2.5); ABG HCO3 33.9 MMOL/L (20-26); ABG Oxygen Saturation 97.1 % (95-100); ABG PH 7.331 (7.35-7.45); ABG PO2 90.2 MM HG (80-95); ABG TCO2 35.6 MMOL/L (23-27)
[2019-12-21 09:27] LABS: ABG PCO2 73.5 MM HG (35-48)
[2019-12-21] MEDS: FLUCONAZOLE INJ 400 MG in PREMIX 1 EACH IV SCH (12:00)
[2019-12-21] MEDS: NOREPINEPHRINE 16 MG in SODIUM CHLORIDE 0.9% 234 ML IV PRN (15:25)
[2019-12-21 18:10] LABS: ABG Base Excess 8.5 MMOL/L (-2.5-2.5); ABG HCO3 32.2 MMOL/L (20-26); ABG Oxygen Saturation 96.4 % (95-100); ABG PH 7.332 (7.35-7.45); ABG PO2 87.8 MM HG (80-95); ABG TCO2 32.8 MMOL/L (23-27)
[2019-12-21 18:13] LABS: ABG PCO2 73.3 MM HG (35-48)
[2019-12-21] MEDS: CISATRACURIUM 200 MG in SODIUM CHLORIDE 0.9% 180 ML IV PRN (18:56)
[2019-12-22] MEDS: INSULIN REGULAR 100 UNIT/ML SUBCUT SCH ×5 (00:18→23:48)
[2019-12-22 04:38] LABS: Basophils # 0.1 10*3/uL (0.0-0.2); Basophils % 0.8 % (0.0-0.8); Eosinophils # 0.6 10*3/uL (0.0-0.87); Eosinophils % 4.9 % (0.00-10.9); Hematocrit 32.1 VOL% (42.0-52.0); Hemoglobin 9.4 GM/DL (14.0-18.0); Immature Granulocytes % 2.3 %; Immature Granulocytes Absolute 0.27 #; Lymphocytes # 0.6 10*3/uL (1.4-4.0); Lymphocytes % 4.9 % (21.2-54.2); Mean Corpuscular HGB Conc 29.3 GM/DL (32-36); Mean Corpuscular Volume 104.2 FL (87-102); Mean Platelet Volume 9.9 FL (9.6-12.0); Monocytes % 4.6 % (1.7-12.7); Neutrophils % 82.5 % (38.7-73.9); Platelet Count 249 T/CUMM (130-400); Red Blood Count 3.08 MC/CUMM (3.8-5.5); Red Cell Distribution Width 16.1 % (9.3-17.3); White Blood Count 11.6 T/CUMM (4-12)
[2019-12-22 05:01] LABS: Calcium 8.1 MG/DL (8.5-10.1); Osmolality,Calculated 305.1 MOS/KG (273-304)
[2019-12-22 06:10] LABS: Anisocytosis 1+; Band Neutrophils 1 % (0-10); Eosinophils 4 % (0-10); Lymphocytes 4 % (20-55); Segmented Neutrophils 90 % (50-85); Total Cells Counted 100
[2019-12-22 06:11] LABS: Platelet Estimate Normal
[2019-12-22 07:10] LABS: ABG Base Excess 10.7 MMOL/L (-2.5-2.5); ABG HCO3 38.2 MMOL/L (20-26); ABG Oxygen Saturation 96.4 % (95-100); ABG PCO2 67.7 MM HG (35-48); ABG PH 7.369 (7.35-7.45); ABG PO2 88.7 MM HG (80-95); ABG TCO2 40.2 MMOL/L (23-27)
[2019-12-22] MEDS: PANTOPRAZOLE 40 MG VIAL IV SCH (08:34)
[2019-12-22] MEDS: CHOLECALCIFEROL 1,000 UNIT TABLET PER TUBE SCH (08:35)
[2019-12-22] MEDS: BISACODYL 5 MG TABLET PO SCH (08:36)
[2019-12-22] MEDS: AMIODARONE 200 MG TABLET PER TUBE SCH ×2 (08:36→21:15)
[2019-12-22] MEDS ORDERED: DEXAMETHASONE 4 MG/1 ML VIAL IV SCH (09:00)
[2019-12-22] MEDS: ENOXAPARIN 100 MG/ML SYRINGE SUBCUT SCH ×2 (10:58→23:47)
[2019-12-22] MEDS: NOREPINEPHRINE 16 MG in SODIUM CHLORIDE 0.9% 234 ML IV PRN (13:21)
[2019-12-22] MEDS: FLUCONAZOLE INJ 400 MG in PREMIX 1 EACH IV SCH (13:35)
[2019-12-22] MEDS: AMIKACIN 1,000 MG in SODIUM CHLORIDE 0.9% 100 ML IV SCH (14:50)
[2019-12-22] MEDS: CISATRACURIUM 200 MG in SODIUM CHLORIDE 0.9% 180 ML IV PRN (18:23)
[2019-12-23] MEDS: NOREPINEPHRINE 16 MG in SODIUM CHLORIDE 0.9% 234 ML IV PRN ×2 (01:38→13:35)
[2019-12-23 04:57] LABS: ABG Base Excess 11.7 MMOL/L (-2.5-2.5); ABG Oxygen Saturation 97.3 % (95-100); ABG PH 7.359 (7.35-7.45); ABG PO2 99.9 MM HG (80-95); ABG TCO2 41.2 MMOL/L (23-27)
[2019-12-23 05:02] LABS: ABG PCO2 70.8 MM HG (35-48)
[2019-12-23 05:03] LABS: Basophils % 0.4 % (0.0-0.8); Hematocrit 30.8 VOL% (42.0-52.0); Immature Granulocytes % 4.1 %; Immature Granulocytes Absolute 0.47 #; Lymphocytes # 0.4 10*3/uL (1.4-4.0); Lymphocytes % 3.6 % (21.2-54.2); Mean Corpuscular HGB Conc 29.2 GM/DL (32-36); Mean Corpuscular Volume 104.1 FL (87-102); Mean Platelet Volume 9.9 FL (9.6-12.0); Monocytes % 4.3 % (1.7-12.7); NRBC # 0.02 10*3/uL; Neutrophils % 87.6 % (38.7-73.9); Platelet Count 294 T/CUMM (130-400); Red Blood Count 2.96 MC/CUMM (3.8-5.5); Red Cell Distribution Width 16.2 % (9.3-17.3); White Blood Count 11.3 T/CUMM (4-12)
[2019-12-23 05:23] LABS: Osmolality,Calculated 300.4 MOS/KG (273-304)
[2019-12-23] MEDS: INSULIN REGULAR 100 UNIT/ML SUBCUT SCH ×3 (05:37→17:51)
[2019-12-23 06:06] LABS: Band Neutrophils 9 % (0-10); Lymphocytes 2 % (20-55); Metamyelocytes 1 %; Platelet Estimate Normal; Segmented Neutrophils 85 % (50-85); Total Cells Counted 100
[2019-12-23 06:07] LABS: Anisocytosis 2+; Basophilic Stippling Slight; Polychromasia Slight; Smudge Cells Few
[2019-12-23] MEDS: BISACODYL 5 MG TABLET PO SCH (08:01)
[2019-12-23] MEDS: AMIODARONE 200 MG TABLET PER TUBE SCH ×2 (08:01→21:28)
[2019-12-23] MEDS: CHOLECALCIFEROL 1,000 UNIT TABLET PER TUBE SCH (08:01)
[2019-12-23] MEDS: PANTOPRAZOLE 40 MG VIAL IV SCH (08:02)
[2019-12-23] MEDS: DEXAMETHASONE 4 MG/1 ML VIAL IV SCH (08:02)
[2019-12-23] MEDS ORDERED: COLISTIMETHATE 300 MG in SODIUM CHLORIDE 0.9% 100 ML IV ONE (08:46)
[2019-12-23] MEDS: MICAFUNGIN 150 MG in SODIUM CHLORIDE 0.9% 100 ML IV SCH (11:51)
[2019-12-23] MEDS: ENOXAPARIN 100 MG/ML SYRINGE SUBCUT SCH (11:52)
[2019-12-23] MEDS: AMIKACIN 1,000 MG in SODIUM CHLORIDE 0.9% 100 ML IV SCH (14:37)
[2019-12-23] MEDS ORDERED: MICAFUNGIN 100 MG, MICAFUNGIN 50 MG in SODIUM CHLORIDE 0.9% 100 ML IV ONE (14:51)
[2019-12-23 15:42] LABS: ABG HCO3 32.8 MMOL/L (20-26); ABG Oxygen Saturation 97.6 % (95-100); ABG PH 7.281 (7.35-7.45); ABG TCO2 35.8 MMOL/L (23-27)
[2019-12-23 15:45] LABS: ABG PCO2 81.3 MM HG (35-48)
[2019-12-23] MEDS: COLISTIMETHATE 150 MG in SODIUM CHLORIDE 0.9% 100 ML IV SCH (21:05)
[2019-12-23] MEDS: SALIVA SUBSTITUTE SPRAY 60 ML CAN SWISH/SPIT PRN (21:12)
[2019-12-24] MEDS: ENOXAPARIN 100 MG/ML SYRINGE SUBCUT SCH ×2 (00:07→12:56)
[2019-12-24] MEDS: INSULIN REGULAR 100 UNIT/ML SUBCUT SCH ×4 (00:54→17:27)
[2019-12-24 04:43] LABS: Basophils # 0.1 10*3/uL (0.0-0.2); Basophils % 0.4 % (0.0-0.8); Eosinophils % 0.2 % (0.00-10.9); Hematocrit 30.9 VOL% (42.0-52.0); Immature Granulocytes % 4.9 %; Lymphocytes # 0.5 10*3/uL (1.4-4.0); Lymphocytes % 3.9 % (21.2-54.2); Mean Corpuscular HGB Conc 29.1 GM/DL (32-36); Mean Corpuscular Volume 105.1 FL (87-102); Mean Platelet Volume 9.6 FL (9.6-12.0); Monocytes % 5.2 % (1.7-12.7); NRBC # 0.05 10*3/uL; Neutrophils % 85.4 % (38.7-73.9); Platelet Count 255 T/CUMM (130-400); Red Blood Count 2.94 MC/CUMM (3.8-5.5); Red Cell Distribution Width 16.8 % (9.3-17.3); White Blood Count 12.3 T/CUMM (4-12)
[2019-12-24 04:53] LABS: Calcium 8.2 MG/DL (8.5-10.1)
[2019-12-24 05:01] LABS: Osmolality,Calculated 294.8 MOS/KG (273-304)
[2019-12-24 05:12] LABS: Hypochromasia 1+; Lymphocytes 4 % (20-55); Microcytosis Slight; Nucleated Red Blood Cells 1 (0-5); Platelet Estimate Adequate; Segmented Neutrophils 93 % (50-85); Total Cells Counted 100
[2019-12-24 05:16] LABS: ABG Base Excess 8.9 MMOL/L (-2.5-2.5); ABG HCO3 32.7 MMOL/L (20-26); ABG Oxygen Saturation 98.1 % (95-100); ABG TCO2 36.1 MMOL/L (23-27)
[2019-12-24] MEDS: AMIODARONE 200 MG TABLET PER TUBE SCH ×2 (08:25→21:57)
[2019-12-24] MEDS: BISACODYL 5 MG TABLET PO SCH (08:25)
[2019-12-24] MEDS: CHOLECALCIFEROL 1,000 UNIT TABLET PER TUBE SCH (08:25)
[2019-12-24] MEDS: COLISTIMETHATE 150 MG in SODIUM CHLORIDE 0.9% 100 ML IV SCH ×2 (08:27→21:57)
[2019-12-24] MEDS: PANTOPRAZOLE 40 MG VIAL IV SCH (08:29)
[2019-12-24] MEDS: DEXAMETHASONE 4 MG/1 ML VIAL IV SCH (08:29)
[2019-12-24] MEDS: SALIVA SUBSTITUTE SPRAY 60 ML CAN SWISH/SPIT PRN ×2 (08:56→13:53)
[2019-12-24] MEDS: MICAFUNGIN 150 MG in SODIUM CHLORIDE 0.9% 100 ML IV SCH (10:56)
[2019-12-24] MEDS: NOREPINEPHRINE 16 MG in SODIUM CHLORIDE 0.9% 234 ML IV PRN (13:05)
[2019-12-24] MEDS: CISATRACURIUM 200 MG in SODIUM CHLORIDE 0.9% 180 ML IV PRN (13:06)
[2019-12-24] MEDS: AMIKACIN 1,000 MG in SODIUM CHLORIDE 0.9% 100 ML IV SCH (13:44)
[2019-12-25] MEDS: ENOXAPARIN 100 MG/ML SYRINGE SUBCUT SCH ×2 (00:15→12:03)
[2019-12-25] MEDS: INSULIN REGULAR 100 UNIT/ML SUBCUT SCH ×4 (01:30→17:46)
[2019-12-25 05:04] LABS: ABG Base Excess 8.6 MMOL/L (-2.5-2.5); ABG HCO3 32.3 MMOL/L (20-26); ABG Oxygen Saturation 97.8 % (95-100); ABG PCO2 64.9 MM HG (35-48); ABG PH 7.351 (7.35-7.45); ABG PO2 97.4 MM HG (80-95); ABG TCO2 33.5 MMOL/L (23-27)
[2019-12-25 05:13] LABS: Basophils % 0.2 % (0.0-0.8); Eosinophils % 0.1 % (0.00-10.9); Hematocrit 27.8 VOL% (42.0-52.0); Hemoglobin 8.3 GM/DL (14.0-18.0); Immature Granulocytes % 5.8 %; Immature Granulocytes Absolute 0.62 #; Lymphocytes # 0.5 10*3/uL (1.4-4.0); Lymphocytes % 4.2 % (21.2-54.2); Mean Corpuscular HGB Conc 29.9 GM/DL (32-36); Mean Corpuscular Volume 103.3 FL (87-102); Mean Platelet Volume 9.9 FL (9.6-12.0); Monocytes % 3.4 % (1.7-12.7); NRBC # 0.09 10*3/uL; Neutrophils % 86.3 % (38.7-73.9); Platelet Count 203 T/CUMM (130-400); Red Blood Count 2.69 MC/CUMM (3.8-5.5); Red Cell Distribution Width 17.2 % (9.3-17.3); White Blood Count 10.6 T/CUMM (4-12)
[2019-12-25 05:22] LABS: Calcium 7.9 MG/DL (8.5-10.1); Osmolality,Calculated 286.4 MOS/KG (273-304)
[2019-12-25 05:36] LABS: Hypochromasia 1+; Lymphocytes 4 % (20-55); Microcytosis 1+; Platelet Estimate Adequate; Segmented Neutrophils 95 % (50-85); Total Cells Counted 100
[2019-12-25] MEDS: COLISTIMETHATE 150 MG in SODIUM CHLORIDE 0.9% 100 ML IV SCH ×2 (08:02→20:54)
[2019-12-25] MEDS: AMIODARONE 200 MG TABLET PER TUBE SCH ×2 (08:49→20:54)
[2019-12-25] MEDS: CHOLECALCIFEROL 1,000 UNIT TABLET PER TUBE SCH (08:49)
[2019-12-25] MEDS: BISACODYL 5 MG TABLET PO SCH (08:49)
[2019-12-25] MEDS: DEXAMETHASONE 4 MG/1 ML VIAL IV SCH (08:49)
[2019-12-25] MEDS: PANTOPRAZOLE 40 MG VIAL IV SCH (08:49)
[2019-12-25] MEDS: MICAFUNGIN 50 MG, MICAFUNGIN 100 MG in SODIUM CHLORIDE 0.9% 100 ML IV SCH (11:29)
[2019-12-25] MEDS: FUROSEMIDE 40 MG/4 ML VIAL IV SCH (13:40)
[2019-12-25] MEDS: AMIKACIN 1,000 MG in SODIUM CHLORIDE 0.9% 100 ML IV SCH (15:47)
[2019-12-26] MEDS: ENOXAPARIN 100 MG/ML SYRINGE SUBCUT SCH ×2 (00:30→11:06)
[2019-12-26] MEDS: INSULIN REGULAR 100 UNIT/ML SUBCUT SCH ×4 (00:40→17:13)
[2019-12-26 05:10] LABS: ABG HCO3 30.9 MMOL/L (20-26); ABG Oxygen Saturation 98.2 % (95-100); ABG PCO2 54.5 MM HG (35-48); ABG PH 7.393 (7.35-7.45); ABG TCO2 30.6 MMOL/L (23-27)
[2019-12-26 05:22] LABS: Basophils % 0.3 % (0.0-0.8); Eosinophils % 0.2 % (0.00-10.9); Hematocrit 29.8 VOL% (42.0-52.0); Hemoglobin 9.1 GM/DL (14.0-18.0); Immature Granulocytes % 5.3 %; Immature Granulocytes Absolute 0.66 #; Lymphocytes # 0.4 10*3/uL (1.4-4.0); Lymphocytes % 3.3 % (21.2-54.2); Mean Corpuscular HGB Conc 30.5 GM/DL (32-36); Mean Corpuscular Volume 101.7 FL (87-102); Mean Platelet Volume 9.9 FL (9.6-12.0); Monocytes % 1.6 % (1.7-12.7); NRBC # 0.17 10*3/uL; Neutrophils % 89.3 % (38.7-73.9); Platelet Count 225 T/CUMM (130-400); Red Blood Count 2.93 MC/CUMM (3.8-5.5); Red Cell Distribution Width 17.7 % (9.3-17.3); White Blood Count 12.5 T/CUMM (4-12)
[2019-12-26 05:51] LABS: Anisocytosis 1+; Lymphocytes 1 % (20-55); Metamyelocytes 1 %; Microcytosis 1+; Nucleated Red Blood Cells 2 (0-5); Segmented Neutrophils 96 % (50-85); Total Cells Counted 100
[2019-12-26 05:52] LABS: Hypochromasia Slight
[2019-12-26] MEDS: NOREPINEPHRINE 16 MG in SODIUM CHLORIDE 0.9% 234 ML IV PRN (06:03)
[2019-12-26 06:07] LABS: Calcium 8.1 MG/DL (8.5-10.1); Osmolality,Calculated 289.4 MOS/KG (273-304)
[2019-12-26] MEDS: DEXAMETHASONE 4 MG/1 ML VIAL IV SCH (08:05)
[2019-12-26] MEDS: BISACODYL 5 MG TABLET PO SCH (08:05)
[2019-12-26] MEDS: AMIODARONE 200 MG TABLET PER TUBE SCH ×2 (08:05→20:22)
[2019-12-26] MEDS: FUROSEMIDE 40 MG/4 ML VIAL IV SCH (08:05)
[2019-12-26] MEDS: PANTOPRAZOLE 40 MG VIAL IV SCH (08:05)
[2019-12-26] MEDS: CHOLECALCIFEROL 1,000 UNIT TABLET PER TUBE SCH (08:05)
[2019-12-26] MEDS: COLISTIMETHATE 150 MG in SODIUM CHLORIDE 0.9% 100 ML IV SCH ×2 (08:41→20:22)
[2019-12-26] MEDS: MICAFUNGIN 50 MG, MICAFUNGIN 100 MG in SODIUM CHLORIDE 0.9% 100 ML IV SCH (11:06)
[2019-12-26] MEDS: AMIKACIN 1,000 MG in SODIUM CHLORIDE 0.9% 100 ML IV SCH (14:05)
[2019-12-27] MEDS: ENOXAPARIN 100 MG/ML SYRINGE SUBCUT SCH ×2 (00:13→11:21)
[2019-12-27] MEDS: INSULIN REGULAR 100 UNIT/ML SUBCUT SCH ×4 (00:14→19:07)
[2019-12-27 04:09] LABS: ABG Base Excess 7.5 MMOL/L (-2.5-2.5); ABG HCO3 34.1 MMOL/L (20-26); ABG Oxygen Saturation 97.8 % (95-100); ABG PCO2 60.7 MM HG (35-48); ABG PH 7.367 (7.35-7.45); ABG PO2 108.7 MM HG (80-95); ABG TCO2 35.9 MMOL/L (23-27)
[2019-12-27 04:24] LABS: Basophils % 0.2 % (0.0-0.8); Eosinophils # 0.2 10*3/uL (0.0-0.87); Eosinophils % 1.2 % (0.00-10.9); Hematocrit 29.2 VOL% (42.0-52.0); Hemoglobin 8.8 GM/DL (14.0-18.0); Immature Granulocytes % 3.7 %; Immature Granulocytes Absolute 0.47 #; Lymphocytes # 0.3 10*3/uL (1.4-4.0); Lymphocytes % 2.4 % (21.2-54.2); Mean Corpuscular HGB Conc 30.1 GM/DL (32-36); Mean Corpuscular Volume 101.4 FL (87-102); Mean Platelet Volume 10.1 FL (9.6-12.0); Monocytes % 2.2 % (1.7-12.7); NRBC # 0.04 10*3/uL; Neutrophils % 90.3 % (38.7-73.9); Platelet Count 193 T/CUMM (130-400); Red Blood Count 2.88 MC/CUMM (3.8-5.5); Red Cell Distribution Width 18.5 % (9.3-17.3); White Blood Count 12.7 T/CUMM (4-12)
[2019-12-27 04:58] LABS: Calcium 8.3 MG/DL (8.5-10.1); Osmolality,Calculated 293.4 MOS/KG (273-304)
[2019-12-27 06:51] LABS: Band Neutrophils 3 % (0-10); Eosinophils 1 % (0-10); Hypochromasia 1+; Lymphocytes 3 % (20-55); Microcytosis 1+; Segmented Neutrophils 89 % (50-85); Total Cells Counted 100
[2019-12-27 06:52] LABS: Anisocytosis 1+; Platelet Estimate Adequate
[2019-12-27] MEDS: AMIODARONE 200 MG TABLET PER TUBE SCH ×2 (08:12→20:02)
[2019-12-27] MEDS: BISACODYL 5 MG TABLET PO SCH (08:13)
[2019-12-27] MEDS: CHOLECALCIFEROL 1,000 UNIT TABLET PER TUBE SCH (08:14)
[2019-12-27] MEDS: FUROSEMIDE 40 MG/4 ML VIAL IV SCH (08:16)
[2019-12-27] MEDS: DEXAMETHASONE 4 MG/1 ML VIAL IV SCH (08:16)
[2019-12-27] MEDS: PANTOPRAZOLE 40 MG VIAL IV SCH (08:17)
[2019-12-27] MEDS: COLISTIMETHATE 150 MG in SODIUM CHLORIDE 0.9% 100 ML IV SCH (08:18)
[2019-12-27] MEDS: COLISTIMETHATE IV SCH ×2 (09:56→20:37)
[2019-12-27] MEDS: SODIUM CHLORIDE 0.9% IV SCH ×2 (09:56→20:37)
[2019-12-27 10:50] LABS: Apearance,Urine CLOUDY (Clear); Bilirubin,Urine Negative (Negative); Blood, Urine Moderate mg/dL (Negative); Glucose,Urine (UA) Negative (Negative); Ketones,Urine Negative (Negative); Mucus,Urine Occasional /LPF (Occasional); Nitrite,Urine Negative (Negative); Protein,Urine Negative; RBC,Urine 4 /HPF (0-4); Squamous Epithelial Cell,Urine Occasional /HPF (0-10); Urine Color Yellow (Yellow); Urine Specific Gravity 1.005 (1.001-1.035); Urine Urobilinogen < 2.0 EU/DL (0.2-1.0); WBC,Urine 3 /HPF (0-6)
[2019-12-27] MEDS: MICAFUNGIN 50 MG, MICAFUNGIN 100 MG in SODIUM CHLORIDE 0.9% 100 ML IV SCH (11:21)
[2019-12-28] MEDS: ENOXAPARIN 100 MG/ML SYRINGE SUBCUT SCH ×3 (00:20→23:50)
[2019-12-28] MEDS: INSULIN REGULAR 100 UNIT/ML SUBCUT SCH ×4 (00:20→17:56)
[2019-12-28 04:12] LABS: Basophils % 0.2 % (0.0-0.8); Eosinophils # 0.1 10*3/uL (0.0-0.87); Hematocrit 27.4 VOL% (42.0-52.0); Hemoglobin 8.3 GM/DL (14.0-18.0); Immature Granulocytes % 3.7 %; Immature Granulocytes Absolute 0.37 #; Lymphocytes # 0.5 10*3/uL (1.4-4.0); Lymphocytes % 4.7 % (21.2-54.2); Mean Corpuscular HGB Conc 30.3 GM/DL (32-36); Mean Corpuscular Volume 102.2 FL (87-102); Mean Platelet Volume 10.1 FL (9.6-12.0); Monocytes % 3.2 % (1.7-12.7); NRBC # 0.02 10*3/uL; Neutrophils % 87.2 % (38.7-73.9); Platelet Count 196 T/CUMM (130-400); Red Blood Count 2.68 MC/CUMM (3.8-5.5); Red Cell Distribution Width 18.4 % (9.3-17.3)
[2019-12-28 04:27] LABS: Allen Test Positive; Pt O2 Delivery Device Ventilator
[2019-12-28 04:28] LABS: ABG Base Excess 7.8 MMOL/L (-2.5-2.5); ABG HCO3 31.6 MMOL/L (20-26); ABG Oxygen Saturation 98.5 % (95-100); ABG PCO2 51.9 MM HG (35-48); ABG PH 7.417 (7.35-7.45)
[2019-12-28 04:45] LABS: Hypochromasia 1+; Lymphocytes 7 % (20-55); Platelet Estimate Adequate; Segmented Neutrophils 91 % (50-85); Total Cells Counted 100
[2019-12-28 04:46] LABS: Microcytosis Slight
[2019-12-28 05:16] LABS: Calcium 8.2 MG/DL (8.5-10.1); Osmolality,Calculated 295.4 MOS/KG (273-304)
[2019-12-28 07:26] VITALS: BP 106/56
[2019-12-28] MEDS: BISACODYL 5 MG TABLET PO SCH (08:18)
[2019-12-28] MEDS: PANTOPRAZOLE 40 MG VIAL IV SCH (08:18)
[2019-12-28] MEDS: AMIODARONE 200 MG TABLET PER TUBE SCH ×2 (08:18→20:22)
[2019-12-28] MEDS: CHOLECALCIFEROL 1,000 UNIT TABLET PER TUBE SCH (08:18)
[2019-12-28] MEDS: DEXAMETHASONE 4 MG/1 ML VIAL IV SCH (08:19)
[2019-12-28] MEDS: SODIUM CHLORIDE 0.9% IV SCH ×2 (08:20→20:22)
[2019-12-28] MEDS: COLISTIMETHATE IV SCH ×2 (08:20→20:22)
[2019-12-28] MEDS: MICAFUNGIN 50 MG, MICAFUNGIN 100 MG in SODIUM CHLORIDE 0.9% 100 ML IV SCH (11:30)
[2019-12-28] MEDS: AMIKACIN 1,000 MG in SODIUM CHLORIDE 0.9% 100 ML IV SCH (14:13)
[2019-12-28] MEDS: LINEZOLID INJ 600 MG in PREMIX 1 EACH IV SCH (17:57)
[2019-12-29] MEDS: INSULIN REGULAR 100 UNIT/ML SUBCUT SCH ×4 (00:12→18:30)
[2019-12-29 03:15] LABS: ABG Base Excess 6.5 MMOL/L (-2.5-2.5); ABG HCO3 32.2 MMOL/L (20-26); ABG Oxygen Saturation 97.4 % (95-100); ABG PCO2 52.4 MM HG (35-48); ABG PH 7.406 (7.35-7.45); ABG PO2 104.5 MM HG (80-95); ABG TCO2 33.8 MMOL/L (23-27); Allen Test Positive; Pt O2 Delivery Device Ventilator
[2019-12-29 04:49] LABS: Basophils % 0.3 % (0.0-0.8); Eosinophils # 0.4 10*3/uL (0.0-0.87); Eosinophils % 3.1 % (0.00-10.9); Hematocrit 28.4 VOL% (42.0-52.0); Hemoglobin 8.7 GM/DL (14.0-18.0); Immature Granulocytes % 2.6 %; Immature Granulocytes Absolute 0.32 #; Lymphocytes # 0.6 10*3/uL (1.4-4.0); Lymphocytes % 5.2 % (21.2-54.2); Mean Corpuscular HGB Conc 30.6 GM/DL (32-36); Mean Corpuscular Volume 101.8 FL (87-102); Mean Platelet Volume 10.1 FL (9.6-12.0); Monocytes % 4.4 % (1.7-12.7); NRBC # 0.02 10*3/uL; Neutrophils % 84.4 % (38.7-73.9); Platelet Count 200 T/CUMM (130-400); Red Blood Count 2.79 MC/CUMM (3.8-5.5); Red Cell Distribution Width 18.5 % (9.3-17.3); White Blood Count 12.4 T/CUMM (4-12)
[2019-12-29 05:42] LABS: Calcium 8.3 MG/DL (8.5-10.1); Osmolality,Calculated 291.7 MOS/KG (273-304)
[2019-12-29] MEDS: LINEZOLID INJ 600 MG in PREMIX 1 EACH IV SCH ×2 (05:47→18:25)
[2019-12-29] MEDS: SODIUM CHLORIDE 0.9% IV SCH ×2 (08:23→21:47)
[2019-12-29] MEDS: COLISTIMETHATE IV SCH ×2 (08:23→21:47)
[2019-12-29] MEDS: AMIODARONE 200 MG TABLET PER TUBE SCH ×2 (08:24→21:10)
[2019-12-29] MEDS: PANTOPRAZOLE 40 MG VIAL IV SCH (08:24)
[2019-12-29] MEDS: BISACODYL 5 MG TABLET PO SCH (08:24)
[2019-12-29] MEDS: CHOLECALCIFEROL 1,000 UNIT TABLET PER TUBE SCH (08:24)
[2019-12-29] MEDS: DEXAMETHASONE 4 MG/1 ML VIAL IV SCH (08:25)
[2019-12-29] MEDS: MICAFUNGIN 50 MG, MICAFUNGIN 100 MG in SODIUM CHLORIDE 0.9% 100 ML IV SCH (10:56)
[2019-12-29] MEDS: ENOXAPARIN 100 MG/ML SYRINGE SUBCUT SCH ×2 (10:59→23:50)
[2019-12-29] MEDS: NYSTATIN 500,000 UNIT/5 ML UDCUP SWISH/SWAL SCH (21:10)
[2019-12-30] MEDS: INSULIN REGULAR 100 UNIT/ML SUBCUT SCH ×4 (00:20→18:20)
[2019-12-30 03:29] LABS: ABG Base Excess 4.7 MMOL/L (-2.5-2.5); ABG HCO3 28.6 MMOL/L (20-26); ABG Oxygen Saturation 96.3 % (95-100); ABG PCO2 40.7 MM HG (35-48); ABG PH 7.459 (7.35-7.45); ABG PO2 76.1 MM HG (80-95); ABG TCO2 26.5 MMOL/L (23-27); Allen Test Positive; Pt O2 Delivery Device Ventilator
[2019-12-30 04:41] LABS: Basophils % 0.2 % (0.0-0.8); Eosinophils # 0.4 10*3/uL (0.0-0.87); Eosinophils % 4.4 % (0.00-10.9); Hematocrit 27.5 VOL% (42.0-52.0); Hemoglobin 8.4 GM/DL (14.0-18.0); Immature Granulocytes Absolute 0.27 #; Lymphocytes # 0.4 10*3/uL (1.4-4.0); Lymphocytes % 4.6 % (21.2-54.2); Mean Corpuscular HGB Conc 30.5 GM/DL (32-36); Mean Corpuscular Volume 98.9 FL (87-102); Mean Platelet Volume 9.9 FL (9.6-12.0); Monocytes % 4.2 % (1.7-12.7); Neutrophils % 83.6 % (38.7-73.9); Platelet Count 175 T/CUMM (130-400); Red Blood Count 2.78 MC/CUMM (3.8-5.5); Red Cell Distribution Width 18.3 % (9.3-17.3)
[2019-12-30 04:56] LABS: Calcium 7.9 MG/DL (8.5-10.1); Osmolality,Calculated 289.8 MOS/KG (273-304)
[2019-12-30] MEDS: LINEZOLID INJ 600 MG in PREMIX 1 EACH IV SCH ×2 (05:29→18:17)
[2019-12-30] MEDS: POTASSIUM CHLORIDE 20 MEQ/15 ML UDCUP PER TUBE PRN ×4 (05:37→12:15)
[2019-12-30] MEDS: NYSTATIN 500,000 UNIT/5 ML UDCUP SWISH/SWAL SCH ×5 (07:58→21:06)
[2019-12-30] MEDS: CHOLECALCIFEROL 1,000 UNIT TABLET PER TUBE SCH (07:59)
[2019-12-30] MEDS: AMIODARONE 200 MG TABLET PER TUBE SCH ×2 (07:59→21:06)
[2019-12-30] MEDS: POLYETHYLENE GLYCOL POWDER 17 GM PACK PO PRN (07:59)
[2019-12-30] MEDS: BISACODYL 5 MG TABLET PO SCH (07:59)
[2019-12-30] MEDS: DEXAMETHASONE 4 MG/1 ML VIAL IV SCH (08:01)
[2019-12-30] MEDS: PANTOPRAZOLE 40 MG VIAL IV SCH (08:03)
[2019-12-30] MEDS: COLISTIMETHATE IV SCH ×2 (08:04→21:06)
[2019-12-30] MEDS: SODIUM CHLORIDE 0.9% IV SCH ×2 (08:04→21:06)
[2019-12-30] MEDS: MICAFUNGIN 50 MG, MICAFUNGIN 100 MG in SODIUM CHLORIDE 0.9% 100 ML IV SCH (11:37)
[2019-12-30] MEDS: ENOXAPARIN 100 MG/ML SYRINGE SUBCUT SCH (12:15)
[2019-12-30] MEDS: AMIKACIN 1,000 MG in SODIUM CHLORIDE 0.9% 100 ML IV SCH (14:34)
[2019-12-30] MEDS: ACETAMINOPHEN 325 MG/10.15 ML UDCUP PO PRN (16:42)
[2019-12-30] MEDS ORDERED: HYDROcod/ACETAMIN 7.5-325 MG/15 ML UDCUP PO PRN (16:55)
[2019-12-31] MEDS: ENOXAPARIN 100 MG/ML SYRINGE SUBCUT SCH ×2 (01:10→12:35)
[2019-12-31] MEDS: INSULIN REGULAR 100 UNIT/ML SUBCUT SCH ×3 (01:10→14:18)
[2019-12-31 04:27] LABS: ABG Base Excess 2.8 MMOL/L (-2.5-2.5); ABG HCO3 26.9 MMOL/L (20-26); ABG PCO2 42.7 MM HG (35-48); ABG PH 7.418 (7.35-7.45); ABG PO2 93.5 MM HG (80-95); ABG TCO2 25.2 MMOL/L (23-27); Allen Test Positive; Pt O2 Delivery Device Ventilator
[2019-12-31 06:03] LABS: Basophils % 0.2 % (0.0-0.8); Eosinophils # 0.4 10*3/uL (0.0-0.87); Eosinophils % 4.8 % (0.00-10.9); Hematocrit 29.6 VOL% (42.0-52.0); Immature Granulocytes % 4.3 %; Immature Granulocytes Absolute 0.36 #; Lymphocytes # 0.5 10*3/uL (1.4-4.0); Lymphocytes % 5.4 % (21.2-54.2); Mean Corpuscular HGB Conc 30.4 GM/DL (32-36); Mean Corpuscular Volume 100.3 FL (87-102); Mean Platelet Volume 10.1 FL (9.6-12.0); Monocytes % 4.3 % (1.7-12.7); Platelet Count 199 T/CUMM (130-400); Red Blood Count 2.95 MC/CUMM (3.8-5.5); Red Cell Distribution Width 18.7 % (9.3-17.3); White Blood Count 8.5 T/CUMM (4-12)
[2019-12-31] MEDS: LINEZOLID INJ 600 MG in PREMIX 1 EACH IV SCH (06:15)
[2019-12-31 06:19] LABS: Calcium 8.3 MG/DL (8.5-10.1); Osmolality,Calculated 291.7 MOS/KG (273-304)
[2019-12-31 07:10] LABS: HIV Antigen/Antibody Result Nonreactive (Nonreactive); Hepatitis B Surface Ag Quant 0.91 Index; Hepatitis B Surface Ag Result Negative (Negative); Hepatitis C Virus Ab Quant 0.31 Index; Hepatitis C Virus Ab Result Negative (Negative)
[2019-12-31] MEDS: CHOLECALCIFEROL 1,000 UNIT TABLET PER TUBE SCH (09:45)
[2019-12-31] MEDS: NYSTATIN 500,000 UNIT/5 ML UDCUP SWISH/SWAL SCH ×2 (09:45→12:35)
[2019-12-31] MEDS: PANTOPRAZOLE 40 MG VIAL IV SCH (09:45)
[2019-12-31] MEDS: BISACODYL 5 MG TABLET PO SCH (09:45)
[2019-12-31] MEDS: AMIODARONE 200 MG TABLET PER TUBE SCH (09:45)
[2019-12-31] MEDS: DEXAMETHASONE 4 MG/1 ML VIAL IV SCH (10:30)
[2019-12-31] MEDS: COLISTIMETHATE IV SCH (10:34)
[2019-12-31] MEDS: SODIUM CHLORIDE 0.9% IV SCH (10:34)
[2019-12-31] MEDS: MICAFUNGIN 50 MG, MICAFUNGIN 100 MG in SODIUM CHLORIDE 0.9% 100 ML IV SCH (12:15)
== END 2019-12-31 15:20 | DRG 4 ==
LOC: SUPCPDRO 10:36 → N.CC 10:36 → SUATTDRO 10:36
PROVIDERS: ADMIT Internal Medicine; ATTEND Family Medicine